=== PATIENT | female | born 1945 | race Caucasian/White ===

== ENCOUNTER 2019-04-28 14:35 | Inpatient (IN) ==
--- NOTE | 2019-04-28 15:00 | Emergency Department Note ---
Disposition Clinical Impression: NSTEMI (non-ST elevated myocardial infarction) Disposition: Admitted As Inpatient Condition: Fair Time of Disposition: 16:47 General Adult HPI - General Stated complaint: weakness Time Seen by Provider: 04/28/19 14:37 Source: patient, EMS Mode of arrival: EMS Limitations: no limitations Nursing Notes Reviewed: Yes Vital Signs Reviewed: Yes - History of Present Illness HPI Narrative: Patient is a 73-year-old female history of diabetes on dialysis who presents to the emergency department via EMS with fatigue, shortness of breath, chest pain. Patient was recently in admitted in an Hospital overnight in a different facility. Since her discharge she has been having fatigue, chest pain, shortness of breath and weakness. Here in the emergency department she is complaining of chest pain that she described it as weights on her chest without radiation. - Related Data Home Medications Medication Instructions Recorded Confirmed Acetaminophen [Tylenol 650mg SUPP] 650 mg RC Q4HR PRN 04/28/19 04/29/19 Levothyroxine Sodium 200 mcg PO DAILY 04/28/19 04/29/19 Lisinopril 2.5 mg PO DAILY 04/28/19 04/29/19 Ranitidine HCl [Acid Electric Meter Tester Shop] 150 mg PO DAILY 04/28/19 04/29/19 Sodium Bicarbonate 650 mg PO BID 04/28/19 04/29/19 Torsemide 100 mg PO DAILY 04/28/19 04/29/19 ALPRAZolam [Xanax 0.5 MG Tablet] 0.5 mg PO BID@0800,1700 04/29/19 04/29/19 ALPRAZolam [Xanax 0.5 MG Tablet] 0.5 mg PO HS PRN 04/29/19 04/29/19 Acetaminophen [Tylenol] 325 mg PO Q6HR PRN 04/29/19 04/29/19 Acetaminophen [Tylenol] 650 mg PO Q6HR PRN 04/29/19 04/29/19 Aquaphor [Aquaphor w Natural 1 appl TP AD 04/29/19 04/29/19 Healing] Aspirin 81 mg PO DAILY 04/29/19 04/29/19 Atorvastatin [Lipitor] 40 mg PO DAILY 04/29/19 04/29/19 Carvedilol [Coreg] 12.5 mg PO BID 04/29/19 04/29/19 Citalopram Hydrobromide 20 mg PO DAILY 04/29/19 04/29/19 [Citalopram HBr] Dimethicone/Zinc Oxide [Teo 142 gm TP AD PRN 04/29/19 04/29/19 Protect Cream] Ferrous Sulfate 325 mg PO BID 04/29/19 04/29/19 Folic Acid 1 mg PO DAILY 04/29/19 04/29/19 Glycerin/Propylene Glycol 1 drop BOTH EYES BID 04/29/19 04/29/19 [Artificial Tears Drops] GuaiFENesin/Dextromethorphan 10 ml PO Q4H PRN 04/29/19 04/29/19 [Robafen Dm Cgh-Chest Manuel Syrp] Hyoscyamine Sulfate [Oscimin Sl] 0.125 mg SL Q2H PRN 04/29/19 04/29/19 Ipratropium/Albuterol Sulfate 3 ml IH Q6HR PRN 04/29/19 04/29/19 [Iprat-Albut 0.5-3(2.5) mg/3 ml] Lactulose 10 gm PO BID 04/29/19 04/29/19 Levothyroxine [Synthroid] 50 mcg PO DAILY 04/29/19 04/29/19 Morphine Oral CONC [Roxanol] 5 mg SL Q4H PRN 04/29/19 04/29/19 OxyCODONE Immed Rel [Roxicodone 30 30 mg PO QID 04/29/19 04/29/19 MG] Potassium Chloride [K-Tab ER] 40 meq PO 1200 04/29/19 04/29/19 Promethazine [Phenergan] 25 mg PO Q6HR PRN 04/29/19 04/29/19 Promethazine [Phenergan] 25 mg RC Q6HR PRN 04/29/19 04/29/19 Daily-Marli 1 tab PO DAILY 04/29/19 04/29/19 Sevelamer HCl [Renagel] 1,600 mg PO TIDWM 04/29/19 04/29/19 Umeclidinium Brm/Vilanterol Tr 1 puff IH DAILY 04/29/19 04/29/19 [Anoro Ellipta 62.5-25 Mcg INH] Vitamin B Complex [B Complex] 1 tab PO DAILY 04/29/19 04/29/19 cloNIDine HCl [CloNIDine HCl] 0.1 mg PO Q8H PRN 04/29/19 04/29/19 Allergies Allergy/AdvReac Type Severity Reaction Status Date / Time No Known Allergies Allergy Verified 04/29/19 15:40 All systems ED: reviewed and negative except as stated. Review of Systems: As Per HPI Constitutional: Denies: fever, chills, weakness Eyes: Denies: eye pain, eye discharge, vision change ENT ED: Denies: ear pain, throat pain Cardiovascular: Reports: chest pain, dyspnea on exertion. Denies: palpitations, orthopnea, edema, syncope Respiratory: Denies: cough, dyspnea, hemoptysis Gastrointestinal: Denies: abdominal pain, nausea, vomiting, melena, hematochezia Genitourinary: Denies: urgency, dysuria Musculoskeletal: Denies: back pain, neck pain Neurological: Denies: headache Psychiatric: Denies: anxiety, depression Past Medical History - Past Medical History Attestation: Yes The following information was validated with the patient. Physical Exam - General Limitations: no limitations General appearance: alert, in no apparent distress - Head Head exam: atraumatic, normocephalic - Eye Eye exam: Present: PERRL, EOMI - ENT ENT exam: normal oropharynx, mucous membranes moist - Neck Neck exam: Present: full ROM - Chest Chest inspection: Present: symmetric chest wall rise. Absent: tenderness - Respiratory Respiratory exam: Present: normal lung sounds bilaterally. Absent: respiratory distress, wheezes - Cardiovascular Cardiovascular exam: Present: normal rhythm, normal heart sounds. Absent: bradycardia, tachycardia, irregular rhythm - Abdominal Exam Abdominal exam: Present: Non-Tender, other (Patient has extensive scarring with a colostomy bag in place, she has watery stools typical for her no signs of melena, or blood). Absent: tenderness, distention Course Course Narrative: Patient presented emergency department for shortness of breath and recent chest pain concerning for ACS. We will get a cardiac workup with likely admission. EKG was concerning special events fundraiser rule no STEMI. Patient's troponin came back at 0.04. Patient was started on aspirin and heparin. - Reevaluation(s) Reevaluation #1: Reevaluated the patient, daughter was at bedside. Spoke with her about her mother's condition and likely need for admission. She agrees. Patient was sleepy at bedside not complaining of any chest pain. Patient's colostomy bag will be accessed by nurse for fecal occult blood test. Time: 16:17 - Consultations Consultation #1: Patient had a concerning EKG Dr. Grey of cardiology was consulted who reviewed the EKG. No STEMI, recommended starting heparin and aspirin. Time: 15:25 Vital Signs Temperature 98.7 F 04/28/19 15:04 Pulse Rate 63 04/28/19 15:04 Respiratory Rate 22 04/28/19 15:04 Blood Pressure 166/80 04/28/19 15:04 O2 Sat by Pulse Oximetry 98 04/28/19 15:04 Temperature 98.6 F 04/30/19 06:54 Pulse Rate 57 04/30/19 06:54 Respiratory Rate 18 04/30/19 06:54 Blood Pressure 161/68 04/30/19 06:54 O2 Sat by Pulse Oximetry 96 04/30/19 06:54 Oxygen Delivery Oxygen Delivery Nasal Cannula Medical Decision Making - [facility] Narrative Medical decision making narrative: Patient presented via EMS with shortness of breath, chest pain, fatigue presented with concerns for ACS. EKG was abnormal special events fundraiser ruled not a 70. Troponin is elevated 0.04. Patient agrees with need for admission. - Medical Records Medical records reviewed: Yes I reviewed the patient's medical records. - Lab Data Lab results reviewed: Yes I reviewed the patient's lab results. Result diagrams: 04/30/19 06:20 04/30/19 08:09 Lab Results 04/28/19 04/28/19 04/28/19 Range/Units 15:15 15:15 15:15 WBC 8.0 (4.3-11.1) K/mcL RBC 3.57 L (3.82-4.97) M/mcL Hgb 10.5 L (11.5-15.4) g/dL Hct 34.0 L (35.3-44.9) % MCV 95.2 (83.0-100.0) fL MCH 29.4 (28.0-33.3) pg MCHC 30.9 L (31.6-35.5) g/dL RDW 14.7 H (11.5-14.5) % Plt Count 113 L (140-400) K/mcL MPV 11.6 (9.4-12.4) fL Immature Gran % 0.8 (0-4) % Seg Neutrophils % 68.0 % Lymphocytes % 19.7 % Monocytes % 11.3 % Eosinophils % 0.1 % Basophils % 0.1 % Neutrophils # 5.4 (1.6-8.9) K/mcL Lymphocytes # 1.6 (0.6-4.6) K/mcL Monocytes # 0.9 (0.0-1.3) K/mcL Eosinophils # 0.0 (0.0-0.6) K/mcL Basophils # 0.0 (0.0-0.2) K/mcL PT 12.2 H (9.4-12.1) Seconds INR 1.1 APTT 38.9 H (26.0-36.0) Seconds Heparin Anti-Xa, Unfract 0.00 L (0.30-0.70) IU/mL Sodium 137 (136-145) mEq/L Potassium 4.7 (3.5-5.1) mEq/L Chloride 98 (98-107) mEq/L Carbon Dioxide 24 (23-29) mEq/L BUN 65 H (8-23) mg/dL Creatinine 7.37 H (0.60-1.20) mg/dL Est GFR ( Amer) 7 L (> 60) Est GFR (Non-Af Amer) 5 L (> 60) BUN/Creatinine Ratio 9 (6-26) Glucose 127 H (70-105) mg/dL Calculated Osmolality 304 H (280-300) Calcium 8.9 (8.6-10.3) mg/dL Troponin I 0.04 H* (< 0.04) ng/mL Stool Occult Bld Scrn (Negative) 04/28/19 Range/Units 16:20 WBC (4.3-11.1) K/mcL RBC (3.82-4.97) M/mcL Hgb (11.5-15.4) g/dL Hct (35.3-44.9) % MCV (83.0-100.0) fL MCH (28.0-33.3) pg MCHC (31.6-35.5) g/dL RDW (11.5-14.5) % Plt Count (140-400) K/mcL MPV (9.4-12.4) fL Immature Gran % (0-4) % Seg Neutrophils % % Lymphocytes % % Monocytes % % Eosinophils % % Basophils % % Neutrophils # (1.6-8.9) K/mcL Lymphocytes # (0.6-4.6) K/mcL Monocytes # (0.0-1.3) K/mcL Eosinophils # (0.0-0.6) K/mcL Basophils # (0.0-0.2) K/mcL PT (9.4-12.1) Seconds INR APTT (26.0-36.0) Seconds Heparin Anti-Xa, Unfract (0.30-0.70) IU/mL Sodium (136-145) mEq/L Potassium (3.5-5.1) mEq/L Chloride (98-107) mEq/L Carbon Dioxide (23-29) mEq/L BUN (8-23) mg/dL Creatinine (0.60-1.20) mg/dL Est GFR ( Amer) (> 60) Est GFR (Non-Af Amer) (> 60) BUN/Creatinine Ratio (6-26) Glucose (70-105) mg/dL Calculated Osmolality (280-300) Calcium (8.6-10.3) mg/dL Troponin I (< 0.04) ng/mL Stool Occult Bld Scrn Positive A (Negative) - Radiology Data Radiology results reviewed: Yes I reviewed the patient's radiology results. Chest X-Ray 04/28/19 15:01 IMPRESSION: Findings concerning for developing right upper lobe pneumonia. Small right pleural effusion, new. D/ / Danika Nguyen MD / Danika Nguyen MD Interpreting Provider: Dankia Nguyen MD - EKG Data EKG #1 EKG attestation: Yes I reviewed and interpreted this EKG. EKG results narrative: EKG performed at 1456 reviewed by myself and the attending with consultation of an interventricular special events fundraiser Dr. Grey. EKG shows a sinus rhythm at a rate of 63 OH 128 QRS 79 QTC 447 normal axis. There are very minimal ST depressions in the inferior lateral leads. With very mild ST elevations in V1, V2, aVR. Cardiology ruled this as not a STEMI. T wave inversions in V1 and V2. These are acute changes when compared with EKG performed 10/04/2012. Overall this is an abnormal EKG. Critical Care Time Critical Care Time: Yes Total Critical Care Time: 45 Attestation: The high probability of a clinically significant, sudden or life threatening deterioration of the cardiovascular system(s) required my full and direct attention, intervention and personal management. The aggregate critical care time was 45 minutes. This time is in addition to time spent performing reported procedures but includes the following: x Data Review and interpretation x Patient assessment and monitoring of vital signs x Documentation x Medication orders and management Attestation Statement - Attestation Attestation: I, Geremias Huggins, examined this patient and my medical decision-making was reviewed with the EGG PRODUCER/PA/Advanced Practice Nurse/Resident Physician. I agree with the documented findings, disposition and treatment plan as described except to the extent set forth below. 73-year-old female presents emergency Department with concerns of weakness, chest pain. EMS stated they found her diaphoretic and confused upon arrival. Patient states that she does not have chest pain emergency department this time however she had pain prior to arrival. She described as a pressure inside of her chest. EKG showed ST depressions in the inferior and lateral leads. We contacted the interventional list immediately after initial evaluation who evaluated the EKG and recommended that it was not a STEMI. He recommended aspirin and heparin and further evaluation. Patient was started on these medications in the emergency department. She did not have any focal neurologic deficits during our initial exam. Daughter arrived to the emergency department after the initial evaluation and then stated that she had deviation of the right eye but did not report any other focal neurologic deficits. CT of the head does not show evidence of acute intracranial hemorrhage or obvious CVA. It unclear as to when the eye deviation started or when it improved. This could be secondary to CVA which will need further evaluation. Initial troponin was mildly elevated.I reviewed the EKG with the resident and agree with the interpretation. Patient will be admitted to the hospitalist for further care and evaluation.
[2019-04-28 15:34] LABS: Basophils % 0.1 %; Eosinophils % 0.1 %; Hemoglobin 10.5 g/dL (11.5-15.4); Immature Granulocytes % 0.8 % (0-4); Lymphocytes # 1.6 K/mcL (0.6-4.6); Lymphocytes % 19.7 %; Mean Corpuscular HGB Conc 30.9 g/dL (31.6-35.5); Mean Corpuscular Hemoglobin 29.4 pg (28.0-33.3); Mean Corpuscular Volume 95.2 fL (83.0-100.0); Mean Platelet Volume 11.6 fL (9.4-12.4); Monocytes # 0.9 K/mcL (0.0-1.3); Monocytes % 11.3 %; Neutrophils # 5.4 K/mcL (1.6-8.9); Platelet Count 113 K/mcL (140-400); Red Blood Count 3.57 M/mcL (3.82-4.97); Red Cell Distribution Width 14.7 % (11.5-14.5)
[2019-04-28] MEDS ORDERED: *HR* Heparin 5,000 UNIT/ML VIAL IVP ONE (15:35)
[2019-04-28] MEDS ORDERED: *HR* Heparin 5,000 UNIT/ML VIAL IVP PRN ×3 (15:35→18:51)
[2019-04-28] MEDS ORDERED: Aspirin 81 MG TAB.CHEW PO STA (15:37)
[2019-04-28] MEDS ORDERED: *HR* Dextrose 50 % in Water (Syg) 50 ML SYRINGE IVP ONE (15:40)
[2019-04-28] MEDS ORDERED: Heparin 25,000 UNIT/250 ML D5W 25,000 UNIT/250 ML IV.SOLN IVC SCH (15:45)
[2019-04-28 15:55] LABS: Calcium 8.9 mg/dL (8.6-10.3); INR 1.1; Potassium 4.7 mEq/L (3.5-5.1); Prothrombin Time 12.2 Seconds (9.4-12.1)
[2019-04-28 15:57] LABS: Activated Partial Thrombo Time 38.9 Seconds (26.0-36.0)
[2019-04-28 16:04] LABS: Troponin I 0.04 ng/mL (< 0.04)
--- NOTE | 2019-04-28 17:26 | Internal Med History&Physical ---
Date of Encounter: 04/28/19 Time of Encounter: 17:40 Internal Medicine - H&P: HPI Chief complaint: lethargy per SNF, chest pain as per EMS Admitted From: Long-term Nursing Facility Plans for Post Hospital Care: [facility] History of present illness: 73 yo SNF resident with extensive pmhx below presented via EMS from SNF EMS privded ED with far different CC than pt daughter (whom had VM she received from SNF) did at bedside. Per EMS pt c/o chest pain, had diaphroesis and sob concerning for ACS sxs and ED worked this up with ekg that was abnormal and discussed with Dr Grey whom ruled out STEMI but did feel hep gtt and asa were warranted and recommended admit, trop 0.04. Pt daughter notes her mother was sent to [place] on 04/26 for lethargy. baseline mentation is AAOx3, awake, alert and interactive. She had been somnolent and not eating/drinking. Pt daughter notes she had pupils that were unequal "and fixed " and they admitted her to the hospital. She reports CT head was normal, labs were largely unremarkable to best of her knowledge, and they told her they thought she was oversedated on her home meds, possibly related to her ESRD status. She discharged to snf yesterday. Pt daughter played VM from [facility] today which noted they were sending pt t ED for elevated BP, lethargy, not eating for over a day and concern her "right eye is offset". We discussed how her paperwork says she was with [facility] hospice and DNR CC and how pt reversed that decision in conversation with daughter last week. As pt became more alert and conversational throughout exam she noted her wish to be a full code. Pt initially somnolent with inability to stay awake for conversation. ED improvement intern notified of new information and hep gtt stopped and stat ct head ordered. Pt gradually became more alert and was able to converse to provide additional history. She recalls having cp in ambulance, substernal, with pressure, sob and diaphoresis, non radiating. She has had cough with yellow sputum and sob in last 4-5 days that is new. no wheezing, orpthopnea, pnd or le edema. In regards to occult stool + and anemia, she is unsure of bl hgb in setting of esrd but does note her stoma bleeds at times and had bled recently. She denies melena or hematochezia, no abd pain, n/v. She is denying cardenas, vision changes, speech chnages or difficulty swallowing in recent days. No weakness, numbness/tingling of ext or face. Has ESRD on HD MWF in [place] at [place]?. Past Med Surg Social Fam HX - Past Medical History Medical history: CHF, COPD, dementia, hyperlipidemia, hypertension, myocardial infarction, renal disease, thyroid disease, other (colostomy) Additional medical history: anemia. UTI. low back pain. bowel obstruction Psychiatric history: anxiety, depression - Past Surgical History Additional surgical history: ex lap with colostomy - Social History Smoking Status: Former smoker Alcohol use: unknown Drug use: unknown Current living situation: ECF - Additional Family History Additional family history: unable to obtain as pt daughter did not know history and pt was somnolent and unable to provide Internal Medicine - H&P: Meds Allergy/AdvReac Type Severity Reaction Status Date / Time No Known Allergies Allergy Verified 04/28/19 16:07 All Systems PM: A 10-system review of systems was performed and is negative for pertinent findings except as documented above in the HPI. - Constitutional Vitals: Temp Pulse Resp BP Pulse Ox 98.7 F 63 22 166/80 99 04/28/19 15:04 04/28/19 15:04 04/28/19 15:04 04/28/19 15:04 04/28/19 15:16 Exam: General: initially somnolent, then awake, alert, appears stated age HEENT:EOM intact, pupils equal, round, moist mucus membranes Neck: supple, trachea midline Cardiovascular:regular rate and rhythm, normal S1 & S2, no rubs, murmurs or gallops. No JVD. radial pulses 2+, no lower extremity edema Lungs:Normal breath sounds, no wheezes, or crackles. Normal respiratory effort Abdomen:Soft, non-tender, non-distended, no rigidity, + bowel sounds, ostomy with clear yellow output that she notes is her baseline Extremities:No deformity, no edema or tenderness, no joint swelling or clubbing. Neurological: AAOx3, CN grossly intact, no pronator drift, strength 5/5 throughout, sensation to lt touch throughout normal and equal, finger to nose testing normal Skin:Normal color, no rash, no pallor, no jaundice Internal Med - H&P Results - Labs CBC & Chem 7: 04/28/19 15:15 04/28/19 15:15 Labs: Short CBC 04/28/19 Range/Units 15:15 WBC 8.0 (4.3-11.1) K/mcL Hgb 10.5 L (11.5-15.4) g/dL Hct 34.0 L (35.3-44.9) % Plt Count 113 L (140-400) K/mcL Neutrophils # 5.4 (1.6-8.9) K/mcL BMP 04/28/19 15:15 Sodium 137 Potassium 4.7 Chloride 98 Carbon Dioxide 24 BUN 65 H Creatinine 7.37 H Glucose 127 H Calcium 8.9 Cardiac Enzymes 04/28/19 Range/Units 15:15 Troponin I 0.04 H* (< 0.04) ng/mL - Impressions ITS Impressions Chest X-Ray 04/28/19 15:01 IMPRESSION: Findings concerning for developing right upper lobe pneumonia. Small right pleural effusion, new. D/ / Danika Nguyen MD / Danika Nguyen MD Interpreting Provider: Danika Nguyen MD - Assessment and Plan (1) NSTEMI (non-ST elevated myocardial infarction) Current Visit: Yes Status: Acute (2) Somnolence Current Visit: Yes Status: Acute (3) ESRD (end stage renal disease) on dialysis Current Visit: Yes Status: Chronic (4) PNA (pneumonia) Current Visit: Yes Status: Acute Qualifiers: Pneumonia type: due to unspecified organism Qualified Code(s): J18.9 - Pneumonia, unspecified organism (5) Anemia Current Visit: Yes Status: Acute Qualifiers: Anemia type: unspecified type Qualified Code(s): D64.9 - Anemia, unspecified (6) Thrombocytopenia Current Visit: Yes Status: Acute (7) HTN (hypertension) Current Visit: Yes Status: Chronic Qualifiers: Hypertension type: essential hypertension Qualified Code(s): I10 - Essential (primary) hypertension - Summary of Assessment and Plan Summary of Assessment and Plan: NSTEMI -cards aware of pt, hep gtt started, asa + statin + BB +acei -trend trops, am ekg, check echo, lipids, a1c, tsh in am -npo in am in case needs stress or lhc Pna, RUL, on CXR, org unknown -rocephin + azithro -attempt to ID organism -prn nebs, o2 prn ESRD on HD MWF- nephro consulted Anemia, hgb 10.5, unknown bl, suspect this is anemia of chronci disease while occult stool + in ED pt noted her stoma bleeds at time but she has no black stools or hematochezia, regardless will treat as if possible GIB, though given her report will cont with hep gtt as above and close monitoring given risk v benefit Thrombocytopenia plts 110s, unclear if chronic or acute -serial hgbs with trops tonight, monitor for bleeding, IV PPI BID and gi consult as if she requires cath or say possible stenting would be improtant to know if has GIB and if this would present DAPT treatment Somnolence, intermittent, becaem awake and AAOx3 in room Differential includes infectious process (pna) , oversedation with extensive home pain meds, psych meds and low dose benzo, or ACS Less likely neurologic in nature, normal neuro exam CT head unremarkable -cont neuro checks, hold sedating meds tonight Hypothyroidism- cont hoem synthroid will awake full home med rec and only essential meds ordered for tonight
[2019-04-28] MEDS ORDERED: Naloxone 0.4 MG/ML INJ IVP PRN (18:17)
[2019-04-28] MEDS ORDERED: Nitroglycerin 0.4 MG TAB.SUBL SL PRN (18:17)
[2019-04-28] MEDS ORDERED: Azithromycin 500 MG in D5% in Water 250 ML IVPB SCH (19:00)
[2019-04-28] MEDS ORDERED: Ipratropium/Albuterol Neb 3 ML IH PRN (19:04)
[2019-04-28] MEDS ORDERED: Acetaminophen 325 MG TABLET PO PRN (19:18)
[2019-04-28] MEDS: Heparin 25,000 UNIT/250 ML D5W 25,000 UNIT/250 ML IV.SOLN IVC SCH (20:40)
[2019-04-28] MEDS: Pantoprazole 40 MG VIAL IVP SCH (21:11)
[2019-04-28 21:45] LABS: Hematocrit 34.6 % (35.3-44.9); Hemoglobin 10.7 g/dL (11.5-15.4); Mean Corpuscular HGB Conc 30.9 g/dL (31.6-35.5); Mean Corpuscular Hemoglobin 29.9 pg (28.0-33.3); Mean Corpuscular Volume 96.6 fL (83.0-100.0); Mean Platelet Volume 10.9 fL (9.4-12.4); Platelet Count 107 K/mcL (140-400); Red Blood Count 3.58 M/mcL (3.82-4.97); Red Cell Distribution Width 14.6 % (11.5-14.5); White Blood Count 7.1 K/mcL (4.3-11.1)
[2019-04-28 21:58] LABS: Heparin anti-factor XA UFH 0.07 IU/mL (0.30-0.70); INR 1.1; Prothrombin Time 12.4 Seconds (9.4-12.1)
[2019-04-29 02:44] LABS: Hematocrit 35.3 % (35.3-44.9); Hemoglobin 10.7 g/dL (11.5-15.4); Immature Granulocytes % 0.9 % (0-4); Lymphocytes # 1.9 K/mcL (0.6-4.6); Lymphocytes % 28.9 %; Mean Corpuscular HGB Conc 30.3 g/dL (31.6-35.5); Mean Corpuscular Hemoglobin 29.1 pg (28.0-33.3); Mean Corpuscular Volume 95.9 fL (83.0-100.0); Mean Platelet Volume 11.1 fL (9.4-12.4); Monocytes # 0.6 K/mcL (0.0-1.3); Monocytes % 9.8 %; Platelet Count 103 K/mcL (140-400); Red Blood Count 3.68 M/mcL (3.82-4.97); Red Cell Distribution Width 14.6 % (11.5-14.5); Segmented Neutrophils % 60.4 %; White Blood Count 6.5 K/mcL (4.3-11.1)
[2019-04-29 03:04] LABS: Calcium 9.3 mg/dL (8.6-10.3); Magnesium 2.4 mg/dL (1.6-2.6); Potassium 4.3 mEq/L (3.5-5.1)
[2019-04-29 03:06] LABS: Chol/HDL Ratio 2.1 (0-4.9); Cholesterol 75 mg/dL (< 200); HDL Cholesterol 35 mg/dL (40-59); LDL Cholesterol,Calculated 24 mg/dL (0-99); Triglycerides 82 mg/dL (< 150)
[2019-04-29 03:39] LABS: Thyroid Stimulating Hormone < 0.010 mcIU/mL (0.340-5.600)
[2019-04-29] MEDS: Pantoprazole 40 MG VIAL IVP SCH ×2 (05:06→17:10)
[2019-04-29 08:01] LABS: Estimated Average Glucose 134 mg/dl
--- NOTE | 2019-04-29 08:07 | Internal Med Progress Note ---
<Madelyn Beltran Danny - Last Filed: 04/29/19 17:11> Hospitalist Progress Note - Encounter Date of Encounter: 04/29/19 Time of Encounter: 09:30 - Subjective Interval History: Patient is a 73-year-old female with history of diabetes on dialysis, CHF, COPD who presented to the emergency department via EMS with fatigue, shortness of b reath, chest pain. Per EMS pt c/o chest pain, had diaphoresis and sob. Concerns for ACS sxs and ED worked this up with ekg that was abnormal STEMI was ruled out although heparin and asa were warranted and recommended admit, with trop 0.04. In ED chest x-ray was completed showed right upper lobe pneumonia with small right pleural effusion. Patient this morning slightly groggy upon awakening but was able to give information about her symptoms. Patient denies any chest pain, denies any abdominal pain, admits to mild shortness of breath. - Exam Vitals: Temp Pulse Resp BP Pulse Ox 97.5 F L 58 16 145/60 97 04/29/19 05:18 04/29/19 05:18 04/29/19 05:18 04/29/19 05:18 04/29/19 05:18 Exam: General: initially groggy, then awake, alert, appears stated age Neck: supple, trachea midline, without thyromegaly. Cardiovascular: regular rate and rhythm, normal S1 & S2, no rubs, murmurs or gallops. No JVD. radial pulses 2+, no lower extremity edema Lungs:Normal breath sounds, no wheezes, or crackles. Normal respiratory effort Abdomen:Soft, non-tender, non-distended, no rigidity, bowel soundsx4 , ostomy in LLQ with brown output with a fecal odor. previous surgical scar midline. Extremities:No deformity, no edema or tenderness, no joint swelling or clubbing. Skin:Normal color, no rash, no pallor, no jaundice neuro: no focal deficits, cooperative with exam. - Assessment and Plan (1) NSTEMI (non-ST elevated myocardial infarction) Current Visit: Yes Status: Acute Assessment and Plan: Patient has been made nothing by mouth. Per cardiology consult: patient was given option of conservative management vs LHC. pt would like to wait for echo to evaluate cardiac function prior to obtaining a heart catheter. Echo be completed tomorrow. (2) Somnolence Current Visit: Yes Status: Acute Assessment and Plan: We will hold sedating medications at the moment to decrease episodes of somno lence. Obtained urine culture: negative for strep and legionella antigens. Reevaluate neurological status Q4H on vital sign check. (3) ESRD (end stage renal disease) on dialysis Current Visit: Yes Status: Chronic Assessment and Plan: Patient was unable to complete dialysis today due to anxious symptoms. Per nephro recommendations: Renal diet. Renal vitamins Strict I's and O's Avoid nephrotoxins and renally dose all medications. (4) PNA (pneumonia) Current Visit: Yes Status: Acute Assessment and Plan: Sputum culture obtained. Continue azithromycin Continue Rocephin (5) Anemia Current Visit: Yes Status: Acute Assessment and Plan: GI consult. per GI recommendations: GI will obtain EGD and colonoscopy tomorrow on clear liquid diet and bowel prep. - Summary of Assessment and Plan Summary of Assessment and Plan: NSTEMI -cardiology consulted on pt: -Check CBC, BMP in am -npo for echo in am. PNA: -continue rocephin + azithro -attempt to ID organism: sputum culture pending. -prn nebs, o2 prn ESRD: - on HD MWF - nephro consulted; - renal diet - renal vitamins - strict I/o - Avoid nephrotoxins and renal dose medications. ANEMIA: - hgb 10.5, unknown bl, suspect this is anemia of chronic disease - while occult stool + in ED, GI consulted: - EGD and Colonoscopy tomorrow - prep with Nulytly or miralax - Clear liquid diet. Thrombocytopenia: plts downtrending unclear if chronic or acute -Will obtain CBC in am. - GI will follow. Somnolence: - intermittent, becomes awake and AAOx3 in room - Differential includes infectious process (pna) , oversedation with extensive home pain meds, psych meds and low dose benzo, or ACS. - CT head unremarkable -cont neuro checks Q4H with vitals, hold sedating meds tonight Hypothyroidism: - TSH low and T4 elevated on home synthroid regimen - cont tele - hold synthroid, she will require dose reduction and close pcp fu outpt - Time Spent with Patient Total time spent is greater than 50% in coordination of care (as documented) at patient's floor/unit and/or counseling patient: Internal Medicine: Result - Labs CBC & Chem 7: 04/29/19 02:33 04/29/19 02:33 Labs: Short CBC 04/28/19 04/28/19 04/29/19 Range/Units 15:15 21:06 02:33 WBC 8.0 7.1 6.5 (4.3-11.1) K/mcL Hgb 10.5 L 10.7 L 10.7 L (11.5-15.4) g/dL Hct 34.0 L 34.6 L 35.3 (35.3-44.9) % Plt Count 113 L 107 L 103 L (140-400) K/mcL Neutrophils # 5.4 4.0 (1.6-8.9) K/mcL BMP 04/28/19 04/29/19 15:15 02:33 Sodium 137 136 Potassium 4.7 4.3 Chloride 98 98 Carbon Dioxide 24 25 BUN 65 H 70 H Creatinine 7.37 H 8.01 H Glucose 127 H 78 Calcium 8.9 9.3 Cardiac Enzymes 04/28/19 04/28/19 04/29/19 Range/Units 15:15 21:06 02:33 Troponin I 0.04 H* 0.04 H* 0.04 H* (< 0.04) ng/mL - ABG Interpretation ABG results: PT/INR, D-dimer PT 12.4 Seconds (9.4-12.1) H 04/28/19 21:06 - Impressions Impressions Chest X-Ray 04/28/19 15:01 IMPRESSION: Findings concerning for developing right upper lobe pneumonia. Small right pleural effusion, new. D/ / Danika Nguyen MD / Danika Nguyen MD Interpreting Provider: Danika Nguyen MD Head CT 04/28/19 17:58 IMPRESSION: No acute intracranial abnormality. Slight cerebral atrophy appropriate for age. Mild chronic ischemic changes also age-appropriate. D/ / Tristen Swift MD / Tristen Swift MD Interpreting Provider: Tristen Swift MD Consult Discharge Plan - Plan Referrals: Trent Bose MD [Primary Care Provider] - <Katie Moreau - Last Filed: 04/30/19 07:52> Hospitalist Progress Note - Encounter Date of Encounter: 04/30/19 - Exam Vitals: Temp Pulse Resp BP Pulse Ox 98.6 F 57 18 161/68 96 04/30/19 06:54 04/30/19 06:54 04/30/19 06:54 04/30/19 06:54 04/30/19 06:54 - Assessment and Plan (1) NSTEMI (non-ST elevated myocardial infarction) Current Visit: Yes Status: Acute (2) Somnolence Current Visit: Yes Status: Acute (3) ESRD (end stage renal disease) on dialysis Current Visit: Yes Status: Chronic (4) PNA (pneumonia) Current Visit: Yes Status: Acute (5) Anemia Current Visit: Yes Status: Acute (6) Thrombocytopenia Current Visit: Yes Status: Chronic (7) HTN (hypertension) Current Visit: Yes Status: Chronic - Time Spent with Patient Total time spent is greater than 50% in coordination of care (as documented) at patient's floor/unit and/or counseling patient: Internal Medicine: Result - Labs CBC & Chem 7: 04/30/19 06:20 04/29/19 02:33 Labs: Short CBC 04/30/19 Range/Units 06:20 WBC 7.9 (4.3-11.1) K/mcL Hgb 11.8 (11.5-15.4) g/dL Hct 36.8 (35.3-44.9) % Plt Count 133 L (140-400) K/mcL Neutrophils # 5.2 (1.6-8.9) K/mcL BMP 04/29/19 02:33 Sodium 136 Potassium 4.3 Chloride 98 Carbon Dioxide 25 BUN 70 H Creatinine 8.01 H Glucose 78 Calcium 9.3 Urine 04/29/19 Range/Units 14:15 Urine Color Yellow (Yellow) Urine Clarity Clear (Clear) Urine pH 7.5 (5.0-8.0) pH Units Ur Specific [place] 1.010 (1.010-1.025) Urine Protein 100 H (Neg-Trace) mg/dL Urine Glucose (UA) Normal (Normal) mg/dL - ABG Interpretation ABG results: PT/INR, D-dimer PT 12.4 Seconds (9.4-12.1) H 04/28/19 21:06 - Attending Attestation I examined this patient and my medical decision-making was reviewed with the Resident Physician Dr Beltran. I agree with the documented findings, disposition and treatment plan as described except to the extent set forth below. Ms Jeffers is being observed for NSTEMI and pna asleep, awakes to name, no family present. answers all questions appropriately. denies cp, pressure, + sob but none at rest on o2 nc, + cough and denies wheezing. gen- alert, awake,appears stated age eyes- pupils equal round cv- reg rate and rhythm, normal s1,s2, no le edema or jvd lungs- ctabl, no wheezing, rhonchi or crackles, normal resp effort on o2 nc abd- soft, non tender, ostomy with ruiz/yellow output neuro- AAOx3, CN grossly intact NSTEMI- apprecate cards input, cont hep gtt, echo pending and then pt to decide LHC vs conservative med management, asa + statin + BB Pna, RUL, org unknown- cont IV abx, attempt ot ID organism acute hypoxic resp failure 2/2 pna + nstemi- cont o2 nc at this time regardless of ability to wean given NSTEMI ESRD- HD as per nephro Somnolence, resolved- she is a hard sleeper but is AAOx3 Hypothyroidism but TSH low and T4 elevated on key esynthroid regimen- unsure if this could have contributed to cardiac sxs- at this time cont tele, hold synthroid, she will require dose reduction and close pcp fu outpt Pre DM- A1C 6.3%, outpt fu Anemia and occult stool +- appreciate gi input, egd/cscope in am <Madelyn Beltran L - Last Filed: 04/29/19 17:11> (4) PNA (pneumonia) Qualifiers: Pneumonia type: due to unspecified organism Laterality: unspecified later ality Lung location: unspecified part of lung Qualified Code(s): J18.9 - Pneumonia, unspecified organism (5) Anemia Qualifiers: Anemia type: unspecified type Qualified Code(s): D64.9 - Anemia, unspecified <Katie Moreau - Last Filed: 04/30/19 07:52> (4) PNA (pneumonia) Qualifiers: Pneumonia type: due to unspecified organism Laterality: unspecified laterality Lung location: unspecified part of lung Qualified Code(s): J18.9 - Pneumonia, unspecified organism (5) Anemia Qualifiers: Anemia type: unspecified type Qualified Code(s): D64.9 - Anemia, unspecified (7) HTN (hypertension) Qualifiers: Hypertension type: essential hypertension Qualified Code(s): I10 - Essential (primary) hypertension
[2019-04-29 09:01] LABS: Triiodothyronine (T3) Free 2.61 pg/mL (2.50-3.90)
[2019-04-29] MEDS ORDERED: 0.9 % Sodium Chloride 250 ML IVC PRN (09:12)
[2019-04-29] MEDS ORDERED: *HR* Heparin 10,000 UNIT/10 ML VIAL IV PRN ×2 (09:12)
[2019-04-29] MEDS ORDERED: 0.9 % Sodium Chloride 1,000 ML PRIME SCH (09:15)
[2019-04-29 09:24] LABS: Hepatitis B Surface Antibody 7.97 mIU/mL
[2019-04-29] MEDS: cefTRIAXone 1,000 MG in Water for inj. (sterile) 10 ML IVP SCH (09:29)
[2019-04-29] MEDS: Aspirin Enteric Coated 81 MG Tablet PO SCH (09:29)
[2019-04-29] MEDS: Azithromycin 250 MG TABLET PO SCH (09:29)
[2019-04-29] MEDS: *HR* Heparin 5,000 UNIT/ML VIAL IVP PRN ×2 (09:30→23:09)
[2019-04-29 09:35] LABS: Hepatitis B Surface Antigen Nonreactive (Nonreactive)
--- NOTE | 2019-04-29 10:57 | Cardiology Consult Note ---
<Lori Gomes - Last Filed: 04/29/19 11:55> Date of Encounter: 04/29/19 - Attending Attestation I examined this patient and my medical decision-making was reviewed with the Resident Physician. I agree with the documented findings, disposition and treatment plan as described. Ms. Jeffers presented with difficulty breathing and chest discomfort. Troponin flat, adynamic 0.04 x 3. Inferior ECG changes are new when compared to ECG from 2013. Patient has been chest pain free since admission. Gave patient options of conservative management vs. consideration for LHC. Patient would like to wait for Echo results before making further decisions. For now, continue heparin, asa, statin, BB. Assessment and Plan Discussion w patient/family: The assessment and plan as outlined above was discussed with the patient and/or family members who expressed understanding and agreement. All questions were answered. Thank you for involving us in the care of your patient. Please call with any questions. History of Present Illness History of present illness: Ms. Jeffers is a 73 year old female Medications and Allergies Acetaminophen [Tylenol 650mg SUPP] 650 mg RC Q4HR PRN 04/28/19 [History] Levothyroxine Sodium 200 mcg PO DAILY 04/28/19 [History] Lisinopril 2.5 mg PO DAILY 04/28/19 [History] Ranitidine HCl [Acid [employer]] 150 mg PO DAILY 04/28/19 [History] RisperiDONE [Risperdal] 0.25 mg PO HS 04/28/19 [History] Sevelamer [Renvela] 800 mg PO WMHS 04/28/19 [History] Sodium Bicarbonate 650 mg PO BID 04/28/19 [History] Torsemide 100 mg PO DAILY 04/28/19 [History] ALPRAZolam [Xanax 0.5 MG Tablet] 0.5 mg PO BID 04/29/19 [History] ALPRAZolam [Xanax 0.5 MG Tablet] 0.5 mg PO HS PRN 04/29/19 [History] Acetaminophen [Tylenol] 325 mg PO Q6HR PRN 04/29/19 [History] Aquaphor [Aquaphor w Natural Healing] 50 gm TP PRN PRN 04/29/19 [History] Artificial Tears SOLN [Akwa Tears] 1 drop BOTH EYES BID 04/29/19 [History] Aspirin 81 mg PO DAILY 04/29/19 [History] Atorvastatin Calcium [Lipitor] 40 mg PO DAILY 04/29/19 [History] Carvedilol [Coreg] 6.25 mg PO BIDWM 04/29/19 [History] Citalopram Hydrobromide [Citalopram HBr] 20 mg PO DAILY 04/29/19 [History] Dimethicone/Zinc Oxide [Teo Protect Cream] 142 gm TP PRN PRN 04/29/19 [History] Ferrous Sulfate [Iron] 325 mg PO BID 04/29/19 [History] Folic Acid 1 mg PO DAILY 04/29/19 [History] GuaiFENesin Liq [Robitussin Liq] 200 mg PO Q4HR PRN 04/29/19 [History] Hyoscyamine Sulfate [Oscimin Sl] 0.125 mg SL Q2HR PRN 04/29/19 [History] Ipratropium/Albuterol Sulfate [Iprat-Albut 0.5-3(2.5) mg/3 ml] 3 ml Q6HR 04/29/19 [History] Lactulose 10 gm PO BID 04/29/19 [History] Levothyroxine [Synthroid] 50 mcg PO DAILY 04/29/19 [History] Morphine Oral CONC [Roxanol] 0.25 ml PO Q4H PRN 04/29/19 [History] OxyCODONE Immed Rel [Roxicodone 30 MG] 30 mg PO Q6H PRN 04/29/19 [History] Promethazine [Phenergan] 25 mg PO Q6HR PRN 04/29/19 [History] Promethazine [Phenergan] 25 mg RC Q6HR PRN 04/29/19 [History] Umeclidinium Brm/Vilanterol Tr [Anoro Ellipta 62.5-25 Mcg INH] 1 each IH DAILY 04/29/19 [History] Vitamin B Complex [B Complex] 1 each PO DAILY 04/29/19 [History] cloNIDine HCl [CloNIDine HCl] 0.1 mg PO TID PRN 04/29/19 [History] Allergy/AdvReac Type Severity Reaction Status Date / Time No Known Allergies Allergy Verified 04/28/19 16:07 All Systems Review: The remainder of the systems were reviewed and are negative Physical Examination Vital Signs, Last 4 Hours Temp Pulse Resp BP Pulse Ox 04/29/19 08:10 98.5 F 68 20 162/74 92 Results 04/29/19 02:33 04/29/19 02:33 Lab Results 04/28/19 04/28/19 04/28/19 15:15 15:15 15:15 WBC 8.0 Hgb 10.5 L Hct 34.0 L Plt Count 113 L INR 1.1 APTT 38.9 H Sodium 137 Potassium 4.7 Chloride 98 Carbon Dioxide 24 BUN 65 H Creatinine 7.37 H Glucose 127 H Calcium 8.9 Magnesium Troponin I 0.04 H* TSH 04/28/19 04/28/19 04/28/19 21:06 21:06 21:06 WBC 7.1 Hgb 10.7 L Hct 34.6 L Plt Count 107 L INR 1.1 APTT Sodium Potassium Chloride Carbon Dioxide BUN Creatinine Glucose Calcium Magnesium Troponin I 0.04 H* TSH 04/29/19 04/29/19 04/29/19 02:33 02:33 02:33 WBC 6.5 Hgb 10.7 L Hct 35.3 Plt Count 103 L INR APTT Sodium Potassium Chloride Carbon Dioxide BUN Creatinine Glucose Calcium Magnesium Troponin I 0.04 H* TSH < 0.010 L 04/29/19 02:33 WBC Hgb Hct Plt Count INR APTT Sodium 136 Potassium 4.3 Chloride 98 Carbon Dioxide 25 BUN 70 H Creatinine 8.01 H Glucose 78 Calcium 9.3 Magnesium 2.4 Troponin I TSH Consult Discharge Plan - Plan Referrals: Trent Bose MD [Primary Care Provider] - <Helen Mayberry - Last Filed: 04/29/19 12:06> Date of Encounter: 04/29/19 Time of Encounter: 10:25 Assessment and Plan (1) NSTEMI (non-ST elevated myocardial infarction) Current Visit: Yes Status: Acute Echocardiogram ordered to evaluate cardiac function Given EKG changes as compared to 2013 EKG, mildly elevated troponin (0.04) and history of CP w/ diaphoresis and SOB worse with exertion, will offer patient option of catheterization (2) Thrombocytopenia Current Visit: Yes Status: Chronic Patient's platelets decreased from 107K at admission to 103K. Although she is now receiving heparin, this is not a significant enough drop yet to indicate HIT. 4T score <3 indicates low probability of HIT at this time. - Continue to monitor CBC - Continue heparin Discussion w patient/family: The assessment and plan as outlined above was discussed with the patient. Ms. Jeffers requested to have the echo results back first before deciding whether to undergo catheterization. All questions were answered. Thank you for involving us in the care of your patient. Please call with any questions. History of Present Illness Consult date: 04/29/19 History of present illness: Ms. Jeffers is a 73 year old female who was brought to the ED from [facility] by EMS on 04/28/19 for evaluation of CP described as a non-radiating "weight on her chest" with diaphoresis and SOB. Patient said she has been having CP for "a while" and that she feels it is recently worse than usual w/ exertion. She has also had a cough for 4-5 days w/ sputum. SNF wanted her evaluated in ED due to HTN, lethargy and loss of appetite. She was seen at [place] on 04/26 for lethargy and discharged w/o acute findings. EKG showed LVH with possible non-specific inferior lead changes, troponin 0.04 times three, CXR showed RUL PNA. CT head neg. Positive FOBT with sample from co lostomy - patient stated stoma sometimes bleeds. INR 1.1. Patient denies current CP or SOB. VS stable , O2 92-97% 3L NC. PMH significant for ESRD w/ dialysis, RI s/p catheterization, although Ms. Jeffers could not recall exactly when; COPD, HLD, anemia of chronic disease, hypothyroid, bowel obstruction, UTI, ex-lap s/p colostomy. Last dialysis on Monday04/26/19. She goes MWF each week. Social history significant for past smoker. She is being given heparin, aspirin, lisinopril, atorvastatin and carvedilol during this admission, along with ceftriaxone for PNA. Past Med Surg Social Fam HX - Past Medical History Medical history: CHF, COPD, dementia, hyperlipidemia, hypertension, myocardial infarction, renal disease, thyroid disease, other Additional medical history: anemia. UTI. low back pain. bowel obstruction Psychiatric history: anxiety, depression - Past Surgical History Additional surgical history: ex lap with colostomy - Social History Smoking Status: Former smoker Smokeless Tobacco Status: No Alcohol use: unknown Drug use: unknown All Systems Review: The remainder of the systems were reviewed and are negative - Constitutional Constitutional: fatigue - Cardiovascular Cardiovascular: chest pain with exertion, diaphoresis, dyspnea on exertion - Respiratory Respiratory: cough Physical Examination Vital Signs, Last 4 Hours Temp Pulse Resp BP Pulse Ox 04/29/19 08:10 98.5 F 68 20 162/74 92 General: Conversant, No Apparent Distress HEENT: Atraumatic, Normocephaly, Mucus Membranes Moist Neck: No JVD, Normal carotid pulses Cardiac: Reg Rate and Rhythm, Normal S1 and S2, No Murmur Lungs: Other (Wheeze on inspiration on right upper lung field) Neuro: Alert and responsive, No focal deficits noted Abdomen: Soft, Non-Tender Skin: No rashes noted on visualized skin Musculoskeletal: No Chest Wall Tenderness Extremities: No Clubbing, No Cyanosis, No Edema, Normal Pulses Results 04/29/19 02:33 04/29/19 02:33 Lab Results 04/28/19 04/28/19 04/28/19 15:15 15:15 15:15 WBC 8.0 Hgb 10.5 L Hct 34.0 L Plt Count 113 L INR 1.1 APTT 38.9 H Sodium 137 Potassium 4.7 Chloride 98 Carbon Dioxide 24 BUN 65 H Creatinine 7.37 H Glucose 127 H Calcium 8.9 Magnesium Troponin I 0.04 H* TSH 04/28/19 04/28/19 04/28/19 21:06 21:06 21:06 WBC 7.1 Hgb 10.7 L Hct 34.6 L Plt Count 107 L INR 1.1 APTT Sodium Potassium Chloride Carbon Dioxide BUN Creatinine Glucose Calcium Magnesium Troponin I 0.04 H* TSH 04/29/19 04/29/19 04/29/19 02:33 02:33 02:33 WBC 6.5 Hgb 10.7 L Hct 35.3 Plt Count 103 L INR APTT Sodium Potassium Chloride Carbon Dioxide BUN Creatinine Glucose Calcium Magnesium Troponin I 0.04 H* TSH < 0.010 L 04/29/19 02:33 WBC Hgb Hct Plt Count INR APTT Sodium 136 Potassium 4.3 Chloride 98 Carbon Dioxide 25 BUN 70 H Creatinine 8.01 H Glucose 78 Calcium 9.3 Magnesium 2.4 Troponin I TSH - Imaging and Cardiology Chest Xray: report reviewed, image reviewed Echo: pending - EKG Interpretation EKG results cardiology: personally reviewed, sinus rhythm, no diagnostic is chemia
--- NOTE | 2019-04-29 12:06 | Nephrology Consult Note ---
Date of Encounter: 04/29/19 Time of Encounter: 12:04 Assessment and Plan (1) ESRD (end stage renal disease) on dialysis Current Visit: Yes Status: Chronic Current regimen is MWF at [facility]. HD in progress for today. Renal diet Renal vitamins Strict I/O Avoid nephrotoxins and renal dose all medications. (2) Anemia Current Visit: Yes Status: Acute Hgb is 10.7, stable. Goal Hgb o 10-11. Qualifiers: Anemia type: unspecified type Qualified Code(s): D64.9 - Anemia, unspecified (3) NSTEMI (non-ST elevated myocardial infarction) Current Visit: Yes Status: Acute Per cardio. Awaiting echo to help patient decide conservative management vs LHC. (4) PNA (pneumonia) Current Visit: Yes Status: Acute Per primary. Qualifiers: Pneumonia type: due to unspecified organism Qualified Code(s): J18.9 - Pneumonia, unspecified organism History of Present Illness - Reason for Consult Consult date: 04/29/19 end stage renal disease Requesting physician: Katie Moreau - Chief Complaint weakness - History of Present Illness Ms. Jeffers is a 73 year old who presented from an F for weakness and shortness of breath. PMH: CHF, COPD, dementia, hyperlipidemia, hypertension, myocardial infarction. ESRD with current regimen MWF at [facility]. Pt appears to be alert and good historian, however with arrival to ED she was lethargic and unable to speak. Denies nausea, vomiting, diarrhea. Denies chest pain or shortness of breath at this time. Patient has been on dialysis approximately 7 or 8 years, she is unsure as to the indication for hemodialysis at the time. She states she has been off and on 1 dialysis over the years. No family history of chronic kidney disease or hemodialysis. She lives in an extended care facility at this time has been there for approximately one half years. She does still make urine daily. Denies tobacco, EtOH, or illicit drug use. Any kidney specialists were consulted to manage dialysis in the hospital. Will continue her current regimen for now, will add additional UF or HD as needed. Past Med Surg Social Fam HX - Past Medical History Medical history: CHF, COPD, dementia, hyperlipidemia, hypertension, myocardial infarction, renal disease, thyroid disease, other Additional medical history: anemia. UTI. low back pain. bowel obstruction Psychiatric history: anxiety, depression - Past Surgical History Additional surgical history: ex lap with colostomy - Social History Smoking Status: Former smoker Smokeless Tobacco Status: No Alcohol use: unknown Drug use: unknown Medications and Allergies Acetaminophen [Tylenol 650mg SUPP] 650 mg RC Q4HR PRN 04/28/19 [History] Levothyroxine Sodium 200 mcg PO DAILY 04/28/19 [History] Lisinopril 2.5 mg PO DAILY 04/28/19 [History] Ranitidine HCl [Acid Interior Paneler] 150 mg PO DAILY 04/28/19 [History] RisperiDONE [Risperdal] 0.25 mg PO HS 04/28/19 [History] Sevelamer [Renvela] 800 mg PO WMHS 04/28/19 [History] Sodium Bicarbonate 650 mg PO BID 04/28/19 [History] Torsemide 100 mg PO DAILY 04/28/19 [History] ALPRAZolam [Xanax 0.5 MG Tablet] 0.5 mg PO BID 04/29/19 [History] ALPRAZolam [Xanax 0.5 MG Tablet] 0.5 mg PO HS PRN 04/29/19 [History] Acetaminophen [Tylenol] 325 mg PO Q6HR PRN 04/29/19 [History] Aquaphor [Aquaphor w Natural Healing] 50 gm TP PRN PRN 04/29/19 [History] Artificial Tears SOLN [Akwa Tears] 1 drop BOTH EYES BID 04/29/19 [History] Aspirin 81 mg PO DAILY 04/29/19 [History] Atorvastatin Calcium [Lipitor] 40 mg PO DAILY 04/29/19 [History] Carvedilol [Coreg] 6.25 mg PO BIDWM 04/29/19 [History] Citalopram Hydrobromide [Citalopram HBr] 20 mg PO DAILY 04/29/19 [History] Dimethicone/Zinc Oxide [Teo Protect Cream] 142 gm TP PRN PRN 04/29/19 [History] Ferrous Sulfate [Iron] 325 mg PO BID 04/29/19 [History] Folic Acid 1 mg PO DAILY 04/29/19 [History] GuaiFENesin Liq [Robitussin Liq] 200 mg PO Q4HR PRN 04/29/19 [History] Hyoscyamine Sulfate [Oscimin Sl] 0.125 mg SL Q2HR PRN 04/29/19 [History] Ipratropium/Albuterol Sulfate [Iprat-Albut 0.5-3(2.5) mg/3 ml] 3 ml Q6HR 04/29/19 [History] Lactulose 10 gm PO BID 04/29/19 [History] Levothyroxine [Synthroid] 50 mcg PO DAILY 04/29/19 [History] Morphine Oral CONC [Roxanol] 0.25 ml PO Q4H PRN 04/29/19 [History] OxyCODONE Immed Rel [Roxicodone 30 MG] 30 mg PO Q6H PRN 04/29/19 [History] Promethazine [Phenergan] 25 mg PO Q6HR PRN 04/29/19 [History] Promethazine [Phenergan] 25 mg RC Q6HR PRN 04/29/19 [History] Umeclidinium Brm/Vilanterol Tr [Anoro Ellipta 62.5-25 Mcg INH] 1 each IH DAILY 04/29/19 [History] Vitamin B Complex [B Complex] 1 each PO DAILY 04/29/19 [History] cloNIDine HCl [CloNIDine HCl] 0.1 mg PO TID PRN 04/29/19 [History] Allergy/AdvReac Type Severity Reaction Status Date / Time No Known Allergies Allergy Verified 04/28/19 16:07 Review of Systems All Systems review (narrative): The remainder of the systems are negative Constitutional: fatigue, no chills, no fever(s) Cardiovascular: no chest pain, no dyspnea, no edema Gastrointestinal: no diarrhea, no nausea, no vomiting Genitourinary Female: no hematuria, no urinary frequency, no urinary hesitancy, no urinary urgency Exam - Vital Signs Vital signs: Initial Vital Signs Temp Pulse Resp BP Pulse Ox 98.7 F 63 22 166/80 98 04/28/19 15:04 04/28/19 15:04 04/28/19 15:04 04/28/19 15:04 04/28/19 15:04 Vital Signs - Last 8 Hours Temp Pulse Resp BP Pulse Ox 04/29/19 08:10 98.5 F 68 20 162/74 92 04/29/19 05:18 97.5 F L 58 16 145/60 97 Intake and Output 04/28/19 04/29/19 04/29/19 23:59 07:59 15:59 Intake Total 250 / 250 Output Total 100 / 100 Balance 250 / 250 -100 / -32 68 / -32 Intake: IV Fluids 250 / 250 Heparin 25,000 UNIT/250 ML D5W 25,000 unit In 250 ml @ 12 UNIT /KG/HR 4.844 mls/hr IVC .Q24H SLOANE Rx#:[id number] Zithromax 500 MG In Dextrose 5% 250 / 250 250 ML @ 252 mls/hr IVPB Q24H SLOANE Rx#:[id number] Output: Stool 100 / 100 Other: Weight 41.5 kg Blood Glucose* 102 - General Appearance General appearance: well-developed, well-nourished EENT: ATNC, hearing intact, vision intact Neck: supple Respiratory: clear Cardiology: no edema, normal S1, normal S2 - Dialysis Access Dialysis Vascular Access: Venous Catheter (DRSG C/D/I) Gastrointestinal: normoactive bowel sounds, no tenderness, no guarding Integumentary: no rash, warm and dry Neurologic: alert and oriented x3 Musculoskeletal: no deformities, no erythema Psychiatric: mood/affect appropriate, cooperative Results - Lab Results 04/29/19 02:33 04/29/19 02:33 Most recent lab results 04/29/19 02:33 Calcium 9.3 Magnesium 2.4 Consult Discharge Plan - Plan Referrals: Trent Bose MD [Primary Care Provider] -
--- NOTE | 2019-04-29 14:05 | Gastroenterology Consult Note ---
Date of Encounter: 04/29/19 Time of Encounter: 10:40 - Assessment and plan (1) Anemia Current Visit: Yes Status: Acute Assessment and plan: Hgb 10.5 on admission and 10.7 today. Fecal occult blood test was positive. Continue to monitor CBC and transfuse PRBC as needed. Plan for EGD and colonoscopy tomorrow. Clear liquid diet today, no red or purple. NPO at midnight. If unable tolerate NuLytely please use MiraLAX prep. If not clear by 6 AM, give 2 tap water enemas. Qualifiers: Anemia type: unspecified type Qualified Code(s): D64.9 - Anemia, unspecified (2) ESRD (end stage renal disease) on dialysis Current Visit: Yes Status: Chronic Assessment and plan: Management per Nephrology. (3) PNA (pneumonia) Current Visit: Yes Status: Acute Assessment and plan: Management per primary team. Qualifiers: Pneumonia type: due to unspecified organism Qualified Code(s): J18.9 - Pneumonia, unspecified organism - Time Spent With Patient Total time spent is greater than 50% in coordination of care (as documented) at patient's floor/unit and/or counseling patient: GI History of Present Illness - Data of Consult Patient: new to practice Consult date: 04/29/19 Requesting Physician: Katie Moreau - Consult Narrative Reason for consult: Anemia, FOBT positive History of present illness: Ms. Jeffers is a 73 year old female with PMHx of CHF, COPD, dementia, HLD, HTN, MT, bowel obstruction, ex lap with colostomy was brought to the ED from SNF by EMS on 04/28/19 for evaluation of CP described as a non-radiating "weight on her chest" with diaphoresis and SOB. She denies fever, chills, weakness, abdominal pain, nausea, vomiting, hematemesis, or melena. She reports that her stoma occasionally bleeds. Fecal occult blood test was positive. Hgb 10.5 on admission and 10.7 today. Procedures: No record. NSAIDs: ASA Anticoagulation: None Past Med Surg Social Fam HX - Past Medical History Medical history: CHF, COPD, dementia, hyperlipidemia, hypertension, myocardial infarction, renal disease, thyroid disease, other Additional medical history: anemia. UTI. low back pain. bowel obstruction Psychiatric history: anxiety, depression - Past Surgical History Additional surgical history: ex lap with colostomy - Social History Smoking Status: Former smoker Smokeless Tobacco Status: No Alcohol use: unknown Drug use: unknown - Gastrointestinal Gastrointestinal: Present: as per HPI - Constitutional Constitutional: as per HPI - EENT Eyes: as per HPI Ears: Present: as per HPI Nose, mouth and throat: Present: as per HPI - Cardiovascular Cardiovascular ROS: Present: as per HPI - Respiratory Respiratory IM: Present: as per HPI - Genitourinary Genitourinary: Absent: change in color, Urinary frequency - Neurological ROS Neurological GI: Present: as per HPI - Hematologic/Lymphatic Hematologic/Lymphatic pediatric: Present: as per HPI - Musculoskeletal Musculoskeletal ROS GI: Present: as per HPI - Integumentary Integumentary GI: Present: as per HPI - Psychiatric ROS Psychiatric GI: Present: as per HPI - Endocrine Endocrine IM: Present: as per HPI - Constitutional Vitals: Temp Pulse Resp BP Pulse Ox 97.5 F L 68 17 156/108 92 04/29/19 13:55 04/29/19 08:10 04/29/19 13:55 04/29/19 13:55 04/29/19 08:10 General appearance: Present: cooperative, A&O X 3, no acute distress, answers questions appropriately - Head Head exam: Present: atraumatic, normocephalic - Eye Eye exam: Present: normal appearance, sclera anicteric - ENT ENT exam: Present: mucous membranes moist - Neck Neck exam general surgery: Present: normal inspection, trachea midline - Respiratory Respiratory exam: Present: decreased breath sounds, CTAB. Absent: rales, rhonchi - Cardiovascular Cardiovascular exam: Present: RRR, +S1, +S2 - GI/Abdominal GI/Abdominal exam: Present: soft, no peritoneal signs. Absent: distended, firm, guarding, tenderness Additional comments: Ostomy LLQ - Rectal Rectal exam: Present: deferred - Extremities Exam Extremities exam: Present: warm - Neurological Exam Neurological exam: Present: no focal deficits - Psychiatric Psychiatric exam: Present: normal affect, normal mood - Skin Skin exam: Present: dry, intact, normal color, warm Results - Labs CBC & Chem 7: 04/29/19 02:33 04/29/19 02:33 Labs: Last Result 04/29/19 04/29/19 04/29/19 02:33 02:33 02:33 Calcium 9.3 Troponin I 0.04 H* Triglycerides 82 Entire Visit 04/29/19 02:33 Hgb 10.7 L Hct 35.3 - ABG ABG results: PT/INR, D-dimer PT 12.4 Seconds (9.4-12.1) H 04/28/19 21:06 - Impressions Impressions Chest X-Ray 04/28/19 15:01 IMPRESSION: Findings concerning for developing right upper lobe pneumonia. Small right pleural effusion, new. D/ / Danika Nguyen MD / Danika Nguyen MD Interpreting Provider: Danika Nguyen MD Head CT 04/28/19 17:58 IMPRESSION: No acute intracranial abnormality. Slight cerebral atrophy appropriate for age. Mild chronic ischemic changes also age-appropriate. D/ / Tristen Swift MD / Tristen Swift MD Interpreting Provider: Tristen Swift MD Consult Discharge Plan - Plan Referrals: Trent Bose MD [Primary Care Provider] -
[2019-04-29 14:47] LABS: Bilirubin,Urine Negative (Negative); Blood,Urine Negative (Negative); Clarity,Urine Clear (Clear); Color,Urine Yellow (Yellow); Glucose,Urine (UA) Normal (Normal); Ketones,Urine Negative (Negative); Leukocyte Esterase,Urine Negative (Negative); Nitrite,Urine Negative (Negative); PH,Urine 7.5 pH Units (5.0-8.0); Protein,Urine 100 mg/dL (Neg-Trace); Urobilinogen,Urine Normal (Normal)
[2019-04-29 14:50] LABS: Bacteria,Urine Few per hpf (None-Few); Hyaline Casts,Urine None Seen per lpf (None-Few); Squamous Epithelial Cell,Urine Many per lpf (None-Few)
[2019-04-29] MEDS ORDERED: ALPRAZolam 0.5 MG TABLET PO ONE (16:13)
--- NOTE | 2019-04-29 16:24 | Event Note ---
Date of Encounter: 04/29/19 Time of Encounter: 09:10 to serve as attending attestation pending completion of the resident daily prog note I examined this patient and my medical decision-making was reviewed with the Resident Physician Dr Beltran. I agree with the documented findings, disposition and treatment plan as described except to the extent set forth below. Ms Jeffers is being observed for NSTEMI and pna asleep, awakes to name, no family present. answers all questions appropriately. denies cp, pressure, + sob but none at rest on o2 nc, + cough and denies wheezing. gen- alert, awake,appears stated age eyes- pupils equal round cv- reg rate and rhythm, normal s1,s2, no le edema or jvd lungs- ctabl, no wheezing, rhonchi or crackles, normal resp effort on o2 nc abd- soft, non tender, ostomy with ruiz/yellow output neuro- AAOx3, CN grossly intact NSTEMI- apprecate cards input, cont hep gtt, echo pending and then pt to decide LHC vs conservative med management, asa + statin + BB Pna, RUL, org unknown- cont IV abx, attempt ot ID organism acute hypoxic resp failure 2/2 pna + nstemi- cont o2 nc at this time regardless of ability to wean given NSTEMI ESRD- HD as per nephro Somnolence, resolved- she is a hard sleeper but is AAOx3 Hypothyroidism but TSH low and T4 elevated on key esynthroid regimen- unsure if this could have contributed to cardiac sxs- at this time cont tele, hold synthroid, she will require dose reduction and close pcp fu outpt Pre DM- A1C 6.3%, outpt fu Anemia and occult stool +- appreciate gi input, egd/cscope in am
--- NOTE | 2019-04-29 16:31 | Electrocardiograph Report ---
[address] [address] Test Date: 2019-04-28 Pat Name: Eugenia Jeffers Department: [id number] Room: 2A38 Gender: F Dietary Worker: : 1945 Requested By: [id number] Order Number: [id number] Reading MD: Galen García Measurements Intervals Buckner Rate: 63 P: 57 AK: 128 QRS: 10 QRSD: 99 T: -84 QT: 436 QTc: 447 Interpretive Statements Sinus rhythm LVH with secondary repolarization abnormality Anterior Q waves, possibly due to LVH Electronically Signed On 04-29-2019 16:29:33 EDT by Galen García
[2019-04-29] MEDS ORDERED: ZINC OXIDE TP PRN (16:40)
[2019-04-29] MEDS ORDERED: DIMETHICONE TP PRN (16:40)
[2019-04-29] MEDS ORDERED: SODIUM CHLORIDE/NAHCO3/KCL/PEG 4,000 ML SOLN.RECON PO ONE (17:00)
[2019-04-29] MEDS ORDERED: Perflutren Lipid Microsphere 1.3 ML in 0.9 % Sodium Chloride 8.7 ML IVP ONE (17:55)
[2019-04-29] MEDS ORDERED: cefTRIAXone 1,000 MG in Water for inj. (sterile) 10 ML IVP SCH (18:16)
--- NOTE | 2019-04-29 19:34 | Anesthesia Evaluation PreOp ---
Date of Encounter: 04/29/19 Time of Encounter: 19:32 - Past History Planned Operation: colonoscopy Cardiac History: DC, CHF, HTN, Hyperlipidemia, Other (anemia) Pulmonary History: COPD, Other (pneumonia) CAR HIKER History: Other (Dementia) Other Medical History: Renal (ESRD), Thyroid (Hypo), Other Anesthesia History: No Prior Anesthetic Complications, Past Anesthesia (Ex[p. La p with Colostomy) : No Alcohol Use: unknown Drug use: unknown Medications and Allergies Acetaminophen [Tylenol 650mg SUPP] 650 mg RC Q4HR PRN 04/28/19 [History] Levothyroxine Sodium 200 mcg PO DAILY 04/28/19 [History] Lisinopril 2.5 mg PO DAILY 04/28/19 [History] Ranitidine HCl [Acid Small Stock Facer] 150 mg PO DAILY 04/28/19 [History] Sodium Bicarbonate 650 mg PO BID 04/28/19 [History] Torsemide 100 mg PO DAILY 04/28/19 [History] ALPRAZolam [Xanax 0.5 MG Tablet] 0.5 mg PO BID@0800,1700 04/29/19 [History] ALPRAZolam [Xanax 0.5 MG Tablet] 0.5 mg PO HS PRN 04/29/19 [History] Acetaminophen [Tylenol] 325 mg PO Q6HR PRN 04/29/19 [History] Acetaminophen [Tylenol] 650 mg PO Q6HR PRN 04/29/19 [History] Aquaphor [Aquaphor w Natural Healing] 1 appl TP AD 04/29/19 [History] Aspirin 81 mg PO DAILY 04/29/19 [History] Atorvastatin [Lipitor] 40 mg PO DAILY 04/29/19 [History] Carvedilol [Coreg] 12.5 mg PO BID 04/29/19 [History] Citalopram Hydrobromide [Citalopram HBr] 20 mg PO DAILY 04/29/19 [History] Dimethicone/Zinc Oxide [Teo Protect Cream] 142 gm TP AD PRN 04/29/19 [History] Ferrous Sulfate 325 mg PO BID 04/29/19 [History] Folic Acid 1 mg PO DAILY 04/29/19 [History] Glycerin/Propylene Glycol [Artificial Tears Drops] 1 drop BOTH EYES BID 04/29/19 [History] GuaiFENesin/Dextromethorphan [Robafen Dm Cgh-Chest Manuel Syrp] 10 ml PO Q4H PRN 04/29/19 [History] Hyoscyamine Sulfate [Oscimin Sl] 0.125 mg SL Q2H PRN 04/29/19 [History] Ipratropium/Albuterol Sulfate [Iprat-Albut 0.5-3(2.5) mg/3 ml] 3 ml IH Q6HR PRN 04/29/19 [History] Lactulose 10 gm PO BID 04/29/19 [History] Levothyroxine [Synthroid] 50 mcg PO DAILY 04/29/19 [History] Morphine Oral CONC [Roxanol] 5 mg SL Q4H PRN 04/29/19 [History] OxyCODONE Immed Rel [Roxicodone 30 MG] 30 mg PO QID 04/29/19 [History] Potassium Chloride [K-Tab ER] 40 meq PO 1200 04/29/19 [History] Promethazine [Phenergan] 25 mg PO Q6HR PRN 04/29/19 [History] Promethazine [Phenergan] 25 mg RC Q6HR PRN 04/29/19 [History] Daily-Marli 1 tab PO DAILY 04/29/19 [History] Sevelamer HCl [Renagel] 1,600 mg PO TIDWM 04/29/19 [History] Umeclidinium Brm/Vilanterol Tr [Anoro Ellipta 62.5-25 Mcg INH] 1 puff IH DAILY 04/29/19 [History] Vitamin B Complex [B Complex] 1 tab PO DAILY 04/29/19 [History] cloNIDine HCl [CloNIDine HCl] 0.1 mg PO Q8H PRN 04/29/19 [History] Allergy/AdvReac Type Severity Reaction Status Date / Time No Known Allergies Allergy Verified 04/29/19 15:40 - Meds/Allergy Pre-op Review Medications Reviewed: Yes Allergies Reviewed: Yes Beta Blockers on Current Med List: Yes If Beta Blockers taken, Date/Time (Last Dose taken): 04/29/19 21:00 Anesthesia Results - Labs 04/29/19 02:33 04/29/19 02:33 - Imaging EKG: report reviewed (Sinus rhythm LVH with secondary repolarization abnormality Anterior Q waves, possibly due to LVH Electronically Signed On 04-29-2019 16:29:33 EDT by Galen García) Anesthesia Exam Vital Signs/O2 Sat, Most Current Temp Pulse Resp BP Pulse Ox 98.6 F 66 16 178/79 92 04/29/19 19:27 04/29/19 19:27 04/29/19 19:27 04/29/19 19:27 04/29/19 19:27 NPO (# of Hours): > 8 hrs Pain Scale: 0 Pain Scale Used: Numeric (1 - 10) - HEENT Pupil (Motor): Pupils equal, EOMI Mallampati: II Teeth: Edentulous Oral Opening: Greater than 3 - CAR HIKER LOC: Oriented CAR HIKER Motor: Normal RUE, Normal LUE, Normal RLE, Normal LLE, Normal Face CAR HIKER Sensory: Normal: RUE, LUE, RLE, LLE, Face - Cardiac Rhythm: Regular Murmur: None JVD: No Carotid Bruit: No - Pulmonary Breath Sounds: bilateral Clear Respiratory Effort: Symmetrical Anesthesia Assess/Plan ASA Score: 4 Level of consciousness: Cooperative Anesthetic Plan: MAC Autologous Blood: Yes Monitoring Plan: Standard Monitors Recovery Plan: Other
[2019-04-29] MEDS: Artificial Tears SOLN 15 ML BOTTLE BOTH EYES SCH (20:13)
[2019-04-30] MEDS: Pantoprazole 40 MG VIAL IVP SCH ×2 (05:42→16:08)
[2019-04-30 06:35] LABS: Basophils % 0.1 %; Hematocrit 36.8 % (35.3-44.9); Hemoglobin 11.8 g/dL (11.5-15.4); Immature Granulocytes % 0.9 % (0-4); Lymphocytes # 1.9 K/mcL (0.6-4.6); Lymphocytes % 23.8 %; Mean Corpuscular HGB Conc 32.1 g/dL (31.6-35.5); Mean Corpuscular Hemoglobin 29.9 pg (28.0-33.3); Mean Corpuscular Volume 93.2 fL (83.0-100.0); Mean Platelet Volume 11.5 fL (9.4-12.4); Monocytes # 0.8 K/mcL (0.0-1.3); Monocytes % 10.1 %; Neutrophils # 5.2 K/mcL (1.6-8.9); Platelet Count 133 K/mcL (140-400); Red Blood Count 3.95 M/mcL (3.82-4.97); Red Cell Distribution Width 14.4 % (11.5-14.5); Segmented Neutrophils % 65.1 %; White Blood Count 7.9 K/mcL (4.3-11.1)
[2019-04-30] MEDS ORDERED: Desitin (Zinc Oxide) 56 GM TUBE TP PRN ×2 (07:13→07:15)
--- NOTE | 2019-04-30 07:25 | Internal Med Progress Note ---
<Madelyn Beltran Danny - Last Filed: 04/30/19 16:59> Hospitalist Progress Note - Encounter Date of Encounter: 04/30/19 Time of Encounter: 08:00 - Subjective Interval History: Patient is a 73-year-old female admitted for observation after an STEMI and pneumonia. Patient seen and examined at bedside today in the presence of her sister and daughter. Patient denies hematemesis, hematochezia, hematouria, chest pain, SOB. Admits to back pain which is chronic for her in nature. - Exam Vitals: Temp Pulse Resp BP Pulse Ox 98.6 F 57 18 161/68 96 04/30/19 06:54 04/30/19 06:54 04/30/19 06:54 04/30/19 06:54 04/30/19 06:54 Exam: General: Awake, alert,A&Ox3, appears cechectic Neck: supple, trachea midline, without thyromegaly or cervial lymphadenopathy. Cardiovascular: irregularly irregular rate and rhythm, no rubs, murmurs. No JVD. radial pulses 2+, no lower extremity edema Lungs: course breath sounds in Posterior RUL, no wheezes, or crackles. decreased respiratory effort, poor lung expansion. Abdomen:Soft, non-tender, non-distended, no rigidity, bowel soundsx4 , ostomy in LLQ with brown output clean no fecal odor. previous surgical scar midline. Extremities:No deformity, no edema or tenderness, no joint swelling or clubbing. Skin:Normal color, no rash, no pallor, no jaundice neuro: no focal deficits, cooperative with exam. - Assessment and Plan (1) NSTEMI (non-ST elevated myocardial infarction) Current Visit: Yes Status: Acute Assessment and Plan: Per cardio recommendations: - discontinue heparin - continue asa, statin, bb, add imdur. - cardio has signed off. - Echo: EF 60% with LVH - moderate aortic regurgitation. (2) PNA (pneumonia) Current Visit: Yes Status: Acute Assessment and Plan: - Patient WBC are WNL. - unable to identify organism. - Complete course of antibiotics. - encourage incentive spirometry - continue to wean oxygen. (3) Somnolence Current Visit: Yes Status: Resolved Assessment and Plan: There i no longer concern for somnolence due to medication changes. - resume home medications of xanax bid for anxiety - continue to add other home medications gradually to identify causal agents of somnolence. (4) ESRD (end stage renal disease) on dialysis Current Visit: Yes Status: Chronic Assessment and Plan: Continue with Nephro recs: - renal diet - renal vitamins - strict I/o - Avoid nephrotoxins and renal dose medications. (5) Anemia Current Visit: Yes Status: Resolved Assessment and Plan: - Uptrending hgb 11.8, - GI consulted: - EGD completed: - hiatal hernia, mild inflammation in the stomach - Colonoscopy tomorrow - Prep with mag citrate. - Clear liquid diet. (6) HTN (hypertension) Current Visit: Yes Status: Chronic Assessment and Plan: add torsemide to medication regimen. monitor bp with vital checks q4H. - Time Spent with Patient Total time spent is greater than 50% in coordination of care (as documented) at patient's floor/unit and/or counseling patient: Internal Medicine: Result - Labs CBC & Chem 7: 04/30/19 06:20 04/30/19 08:09 Labs: Short CBC 04/30/19 Range/Units 06:20 WBC 7.9 (4.3-11.1) K/mcL Hgb 11.8 (11.5-15.4) g/dL Hct 36.8 (35.3-44.9) % Plt Count 133 L (140-400) K/mcL Neutrophils # 5.2 (1.6-8.9) K/mcL BMP 04/29/19 02:33 Sodium 136 Potassium 4.3 Chloride 98 Carbon Dioxide 25 BUN 70 H Creatinine 8.01 H Glucose 78 Calcium 9.3 Urine 04/29/19 Range/Units 14:15 Urine Color Yellow (Yellow) Urine Clarity Clear (Clear) Urine pH 7.5 (5.0-8.0) pH Units Ur Specific Gracey 1.010 (1.010-1.025) Urine Protein 100 H (Neg-Trace) mg/dL Urine Glucose (UA) Normal (Normal) mg/dL - ABG Interpretation ABG results: PT/INR, D-dimer PT 12.4 Seconds (9.4-12.1) H 04/28/19 21:06 Consult Discharge Plan - Plan Referrals: Trent Bose MD [Primary Care Provider] - <Katie Moreau M - Last Filed: 04/30/19 17:55> Hospitalist Progress Note - Encounter Date of Encounter: 04/30/19 - Exam Vitals: Temp Pulse Resp BP Pulse Ox 97.9 F 79 22 110/70 96 04/30/19 16:24 04/30/19 16:24 04/30/19 16:24 04/30/19 16:24 04/30/19 16:24 - Assessment and Plan (1) NSTEMI (non-ST elevated myocardial infarction) Current Visit: Yes Status: Acute (2) Somnolence Current Visit: Yes Status: Resolved (3) ESRD (end stage renal disease) on dialysis Current Visit: Yes Status: Chronic (4) PNA (pneumonia) Current Visit: Yes Status: Acute (5) Anemia Current Visit: Yes Status: Resolved (6) Thrombocytopenia Current Visit: Yes Status: Chronic (7) HTN (hypertension) Current Visit: Yes Status: Chronic - Time Spent with Patient Total time spent is greater than 50% in coordination of care (as documented) at patient's floor/unit and/or counseling patient: Internal Medicine: Result - Labs CBC & Chem 7: 04/30/19 06:20 04/30/19 08:09 Labs: Short CBC 04/30/19 Range/Units 06:20 WBC 7.9 (4.3-11.1) K/mcL Hgb 11.8 (11.5-15.4) g/dL Hct 36.8 (35.3-44.9) % Plt Count 133 L (140-400) K/mcL Neutrophils # 5.2 (1.6-8.9) K/mcL BMP 04/30/19 08:09 Sodium 136 Potassium 4.5 Chloride 95 L Carbon Dioxide 24 BUN 50 H Creatinine 6.19 H Glucose 79 Calcium 9.5 - ABG Interpretation ABG results: PT/INR, D-dimer PT 12.4 Seconds (9.4-12.1) H 04/28/19 21:06 - Impressions Impressions Echocardiogram 04/28/19 17:34 Impressions: LVEF 60%. Moderate concentric left ventricular hypertrophy. Mild left ventricular diastolic dysfunction. Normal right ventricular structure and function. Mild tricuspid regurgitation. No evidence of pulmonary hypertension. Moderate aortic regurgitation of unclear mechanism. Left Ventricular Wall Motion: Rest Echo Findings All wall segments showed normal motion. Findings: Study Quality * Technically sub-optimal due to poor echocardiographic windows. ECG Findings * Sinus rhythm with BBB. Left Ventricle * LVEF 60%. * Moderate concentric left ventricular hypertrophy. * Mild left ventricular diastolic dysfunction. * Normal LV chamber size. Right Ventricle * Normal right ventricular structure and function. Left Atrium * Normal left atrial size. Right Atrium * Normal right atrial size. Aortic Valve * Aortic valve not well visualized. * Moderate aortic regurgitation. * No aortic stenosis. Mitral Valve * Normal mitral valve structure. * No mitral regurgitation. * No mitral stenosis. Tricuspid Valve * Mild tricuspid regurgitation. * No tricuspid stenosis. * Normal tricuspid valve structure. * No evidence of pulmonary hypertension. Pulmonic Valve * Pulmonic valve not well visualized. Aorta * Aortic root was not well visualized Pericardium * The pericardium appears normal. IVC * Normal IVC dimensions and inspiratory collapse. Pulmonary Artery * Pulmonary artery not well visualized. - Attending Attestation I examined this patient and my medical decision-making was reviewed with the Resident Physician Dr Beltran. I agree with the documented findings, disposition and treatment plan as described except to the extent set forth below. Ms Jeffers is being observed for NSTEMI and pna awake, family at bedside, cough improved, no sob, f/c. denies cp, palpitations. gen- alert, awake,appears stated age cv- reg rate and rhythm, normal s1,s2 lungs-+ exp wheezing rhonchi or crackles, normal resp effort on o2 nc abd- soft, non tender neuro- AAOx3 NSTEMI- appreciate cards input,can dc gtt, pt opted for med maangement, no LHC, imdur added + asa + statin + BB Pna, RUL, org unknown- cont IV abx acute hypoxic resp failure 2/2 pna + nstemi- wean o2 ESRD- HD as per nephro Somnolence, resolved Hypothyroidism but TSH low and T4 elevated on home synthroid regimen- unsure if this could have contributed to cardiac sxs- at this time cont tele, hold synthroid, she will require dose reduction and close pcp fu outpt Pre DM- A1C 6.3%, outpt fu Anemia and occult stool +- appreciate gi input, egd today and did not complete cscope prep <Madelyn Beltran L - Last Filed: 04/30/19 16:59> (2) PNA (pneumonia) Qualifiers: Pneumonia type: due to unspecified organism Laterality: unspecified laterality Lung location: unspecified part of lung Qualified Code(s): J18.9 - Pneumonia, unspecified organism (5) Anemia Qualifiers: Anemia type: unspecified type Qualified Code(s): D64.9 - Anemia, unspecified (6) HTN (hypertension) Qualifiers: Hypertension type: essential hypertension Qualified Code(s): I10 - Essential (primary) hypertension <Katie Moreau M - Last Filed: 04/30/19 17:55> (4) PNA (pneumonia) Qualifiers: Pneumonia type: due to unspecified organism Laterality: unspecified laterality Lung location: unspecified part of lung Qualified Code(s): J18.9 - Pneumonia, unspecified organism (5) Anemia Qualifiers: Anemia type: unspecified type Qualified Code(s): D64.9 - Anemia, unspecified (7) HTN (hypertension) Qualifiers: Hypertension type: essential hypertension Qualified Code(s): I10 - Essential (primary) hypertension
[2019-04-30] MEDS: Aspirin Enteric Coated 81 MG Tablet PO SCH ×2 (07:28→07:41)
[2019-04-30] MEDS: Renal Vitamin 1 CAP CAPSULE PO SCH ×2 (07:28→07:41)
[2019-04-30] MEDS: Azithromycin 250 MG TABLET PO SCH (07:41)
[2019-04-30] MEDS: cefTRIAXone 1,000 MG in Water for inj. (sterile) 10 ML IVP SCH (07:41)
[2019-04-30] MEDS: Heparin 25,000 UNIT/250 ML D5W 25,000 UNIT/250 ML IV.SOLN IVC SCH (07:43)
[2019-04-30] MEDS: Artificial Tears SOLN 15 ML BOTTLE BOTH EYES SCH ×2 (07:45→20:40)
[2019-04-30] MEDS ORDERED: VILANTEROL TR IH SCH (09:00)
[2019-04-30] MEDS ORDERED: UMECLIDINIUM BRM IH SCH (09:00)
[2019-04-30 09:18] LABS: Calcium 9.5 mg/dL (8.6-10.3); Phosphorous 6.9 mg/dL (2.7-4.5); Potassium 4.5 mEq/L (3.5-5.1)
[2019-04-30] MEDS ORDERED: Budesonide/Formoterol 160/4.5 1 PUFF INH IH SCH (10:00)
[2019-04-30] MEDS ORDERED: Tiotropium 18 MCG inhalation IH SCH (10:00)
[2019-04-30] MEDS: Tiotropium 18 MCG inhalation IH SCH (10:31)
[2019-04-30] MEDS ORDERED: Lidocaine -MPF 2% 2 ML VIAL ONE (11:03)
[2019-04-30] MEDS ORDERED: Propofol 500 MG/50 ML INFUS..BTL ONE (11:03)
--- NOTE | 2019-04-30 13:56 | Cardiology Progress Note ---
Date of Encounter: 04/30/19 Time of Encounter: 12:00 Assessment and Plan (1) NSTEMI (non-ST elevated myocardial infarction) Current Visit: Yes Status: Acute Patient presented with atypical chest pain. Found to have mild adynamic troponin elevation (0.04x3). EKG with new ischemic changes compared to 2013. Changes also in the setting of ESRD and PNA. TTE reviewed with patient. EF preserved and no WMA. Moderate aortic regurgitation seen. LHC R/B/A reviewed. LHC vs medical management discussed. Pt does not want to proceed with LHC at this time. Prefers medical management. States that she feels like she is going through to much right now. At this point heparin gtt can be discontinued. Continue asa, statin, bb, and add imdur. Cardiology will sign off. Call with changes or concern. Thanks. Discussion w patient/family: The assessment and plan as outlined above was discussed with the patient and/or family members who expressed understanding and agreement. All questions were answered. Thank you for involving us in the care of your patient. Please call with any questions. Subjective Principal diagnosis: chest pain Interval history: Ms. Jeffers reports one episode of atypical right sided chest pain this morning that was relieved with no intervention. Otherwise no other complaints. Objective Vital Signs, Last 4 Hours Temp Pulse Resp BP Pulse Ox 04/30/19 12:35 98.8 F 61 18 148/57 98 04/30/19 11:41 98.8 F 57 16 154/67 98 04/30/19 10:31 18 98 General: Conversant, No Apparent Distress HEENT: Atraumatic, Normocephaly, Mucus Membranes Moist Neck: No JVD, Normal carotid pulses Cardiac: Reg Rate and Rhythm, Normal S1 and S2, No Murmur Lungs: Normal Breath Sounds, No Wheeze, Rales, Rhonchi Neuro: Alert and responsive, No focal deficits noted Abdomen: Soft, Non-Tender Skin: No rashes noted on visualized skin Musculoskeletal: No Chest Wall Tenderness Extremities: No Clubbing, No Cyanosis, No Edema, Normal Pulses Results 04/30/19 06:20 04/30/19 08:09 Lab Results 04/30/19 04/30/19 06:20 08:09 WBC 7.9 Hgb 11.8 Hct 36.8 Plt Count 133 L Sodium 136 Potassium 4.5 Chloride 95 L Carbon Dioxide 24 BUN 50 H Creatinine 6.19 H Glucose 79 Calcium 9.5 - Imaging and Cardiology Echo: report reviewed - EKG Interpretation EKG results cardiology: personally reviewed Consult Discharge Plan - Plan Referrals: Trent Bose MD [Primary Care Provider] -
--- NOTE | 2019-04-30 14:12 | Anesthesia Evaluation Post Op ---
Date of Encounter: 04/30/19 Time of Encounter: 14:11 - Vital Signs Vital Signs: Vital Signs/O2 Sat, Most Current Temp Pulse Resp BP Pulse Ox 98.8 F 61 18 148/57 98 04/30/19 12:35 04/30/19 12:35 04/30/19 12:35 04/30/19 12:35 04/30/19 12:35 - Lungs Lungs: Clear Ascult./Percussion - Airway Airway: Non-obstructed - Cardiovascular Regular Rate - Mental Status Mental Status: Alert & Oriented, Answers Appropriately - Pain Pain Scale: 0 Pain Scale used: Numeric (1 - 10) - Nausea Vomiting Nausea Vomiting: Not Present - Hydration Hydration: NPO, Has not voided - Discharge PostOp Status: Transfer Patient to floor
[2019-04-30] MEDS: Isosorbide MONOnitrate (24 HR) 30 MG TAB.ER.24H PO SCH (16:08)
[2019-04-30] MEDS: *HR* Heparin 5,000 UNIT/ML VIAL SQ SCH (16:21)
[2019-04-30] MEDS: Ondansetron 4 MG/2 ML VIAL IVP PRN (16:30)
[2019-04-30] MEDS ORDERED: ALPRAZolam 0.5 MG TABLET PO PRN (16:45)
[2019-04-30] MEDS: ALPRAZolam 0.5 MG TABLET PO SCH (20:43)
--- NOTE | 2019-04-30 20:49 | Nephrology Progress Note ---
Date of Encounter: 04/30/19 Time of Encounter: 16:30 - Assessment and Plan (1) ESRD (end stage renal disease) on dialysis Current Visit: Yes Status: Chronic Current regimen is MWF at [facility]. HD completed yesterday without complication. Plan for HD tomorrow before repeat colonoscopy. Renal diet Renal vitamins Strict I/O Avoid nephrotoxins and renal dose all medications. (2) Anemia Current Visit: Yes Status: Resolved Hgb is 11.8 stable. Goal Hgb 10-11. Qualifiers: Anemia type: unspecified type Qualified Code(s): D64.9 - Anemia, unspecified (3) NSTEMI (non-ST elevated myocardial infarction) Current Visit: Yes Status: Acute Cardio has signed off, continue medical management. (4) PNA (pneumonia) Current Visit: Yes Status: Acute Per primary. Qualifiers: Pneumonia type: due to unspecified organism Laterality: unspecified laterality Lung location: unspecified part of lung Qualified Code(s): J18.9 - Pneumonia, unspecified organism Subjective Principal diagnosis: chest pain Interval history: Pt seen and at bedside. Family at bedside. Pt drowsy from EGD and colonoscopy. Admits to vomiting. Denies chest pain or shortness of breath. Objective - Vital Signs Vital signs: Vital Signs Temp Pulse Resp BP Pulse Ox 04/30/19 16:24 97.9 F 79 22 110/70 96 04/30/19 12:35 98.8 F 61 18 148/57 98 04/30/19 11:41 98.8 F 57 16 154/67 98 04/30/19 10:31 18 98 04/30/19 06:54 98.6 F 57 18 161/68 96 04/30/19 04:42 97.8 F 57 17 162/68 96 04/30/19 00:52 97.8 F 59 16 156/67 93 Intake and Output 04/30/19 04/30/19 04/30/19 07:59 15:59 23:59 Intake Total 48.7 / 110.7 0 / 110.7 62 / 110.7 Output Total 200 / 200 Balance -151.3 / -89.3 0 / -89.3 62 / -89.3 Intake: IV Fluids 48.7 / 110.7 62 / 110.7 Heparin 25,000 UNIT/250 ML D5W 48.7 / 100.7 52 / 100.7 25,000 unit In 250 ml @ 12 UNIT /KG/HR 4.844 mls/hr IVC .Q24H [facility] Rx#:[id number] Rocephin 1,000 MG In Water for inj. (sterile) 10 ML @ 600 mls/ hr IVP DAILY [facility] Rx#:[id number] Oral 0 / 0 0 / 0 Output: Stool 200 / 200 Other: Meal NPO Lunch Percent of Meal Consumed 0% 0% Stool Consistency liquid Stool Characteristics Seedy Stool Color Brown Green Weight 42 kg Blood Glucose* 88 81 72 Patient Weight 04/30/19 23:59 Weight 42 kg - General Appearance General appearance: Present: chronically ill, frail EENT: Present: ATNC, hearing intact, vision intact Neck: Present: supple Respiratory: Present: clear Cardiology: Present: no edema, normal S1, normal S2 Dialysis Vascular Access: Venous Catheter Additional Comments: DRSG C/D/I Gastrointestinal: Present: normoactive bowel sounds, no tenderness, no guarding Integumentary: Present: no rash, warm and dry Neurologic: Present: alert and oriented x3 Musculoskeletal: Present: no deformities, no erythema Psychiatric: Present: mood/affect appropriate, cooperative - Lab 04/30/19 06:20 04/30/19 08:09 Most recent lab results 04/30/19 08:09 Calcium 9.5 Phosphorus 6.9 H Consult Discharge Plan - Plan Referrals: Trent Bose MD [Primary Care Provider] -
[2019-04-30] MEDS ORDERED: Acetaminophen IV 500 MG/50 ML INFUS..BTL IVPB ONE (21:05)
[2019-05-01 02:01] LABS: Hematocrit 39.4 % (35.3-44.9); Hemoglobin 12.3 g/dL (11.5-15.4); Mean Corpuscular HGB Conc 31.2 g/dL (31.6-35.5); Mean Corpuscular Hemoglobin 29.6 pg (28.0-33.3); Mean Corpuscular Volume 94.7 fL (83.0-100.0); Mean Platelet Volume 11.1 fL (9.4-12.4); Platelet Count 147 K/mcL (140-400); Red Blood Count 4.16 M/mcL (3.82-4.97); Red Cell Distribution Width 14.5 % (11.5-14.5)
[2019-05-01 02:20] LABS: Calcium 9.5 mg/dL (8.6-10.3)
[2019-05-01] MEDS: Pantoprazole 40 MG VIAL IVP SCH (05:44)
[2019-05-01] MEDS: *HR* Heparin 5,000 UNIT/ML VIAL SQ SCH (05:44)
[2019-05-01] MEDS: Tiotropium 18 MCG inhalation IH SCH (07:25)
[2019-05-01] MEDS: Aspirin Enteric Coated 81 MG Tablet PO SCH (07:59)
[2019-05-01] MEDS: Renal Vitamin 1 CAP CAPSULE PO SCH (07:59)
[2019-05-01] MEDS: Azithromycin 250 MG TABLET PO SCH (07:59)
[2019-05-01] MEDS: Isosorbide MONOnitrate (24 HR) 30 MG TAB.ER.24H PO SCH (07:59)
[2019-05-01] MEDS: ALPRAZolam 0.5 MG TABLET PO SCH (08:00)
[2019-05-01] MEDS: cefTRIAXone 1,000 MG in Water for inj. (sterile) 10 ML IVP SCH (08:00)
[2019-05-01] MEDS: Artificial Tears SOLN 15 ML BOTTLE BOTH EYES SCH (08:02)
[2019-05-01] MEDS ORDERED: 0.9 % Sodium Chloride 250 ML IVC PRN (08:13)
[2019-05-01] MEDS ORDERED: *HR* Heparin 10,000 UNIT/10 ML VIAL IV PRN ×2 (08:13)
[2019-05-01] MEDS ORDERED: 0.9 % Sodium Chloride 1,000 ML PRIME SCH (08:15)
[2019-05-01] MEDS ORDERED: Torsemide 20 MG TABLET PO SCH (09:00)
--- NOTE | 2019-05-01 09:41 | Discharge Summary ---
- NOTES TO OUTPATIENT PROVIDER Notes to Outpatient Provider: Pt presented with chest pain - medical management. Also was anemic. EGD showed gastritis. Does not want colonoscopy. Thyroid function abnormal - will need dose adjustment. Date of Encounter: 05/01/19 Time of Encounter: 09:30 - Discharge Diagnosis (1) NSTEMI (non-ST elevated myocardial infarction) Priority: Primary Status: Acute (2) ESRD (end stage renal disease) on dialysis Priority: Secondary Status: Chronic (3) PNA (pneumonia) Priority: Secondary Status: Acute Qualifiers: Pneumonia type: due to unspecified organism Laterality: right Lung location: upper lobe of lung Qualified Code(s): J18.1 - Lobar pneumonia, unspecified organism (4) Anemia Priority: Secondary Status: Chronic Qualifiers: Anemia type: due to chronic kidney disease Chronic kidney disease stage: on chronic dialysis Qualified Code(s): N18.6 - End stage renal disease; D63.1 - Anemia in chronic kidney disease; Z99.2 - Dependence on renal dialysis (5) Thrombocytopenia Priority: Secondary Status: Chronic (6) Somnolence Priority: Secondary Status: Resolved (7) HTN (hypertension) Priority: Secondary Status: Chronic Qualifiers: Hypertension type: essential hypertension Qualified Code(s): I10 - Essential (primary) hypertension (8) Respiratory failure Priority: Primary Status: Acute Qualifiers: Chronicity: acute Respiratory failure complication: hypoxia Qualified Code(s): J96.01 - Acute respiratory failure with hypoxia Hospital course: Ms. Jeffers is a 73 year old female with hx of ESRD on HD presented to ED with chest pain and somnolence. Found to have elevated troponin and subsequently admitted. Ms Jeffers was admitted to [facility] with acute NSTEMI. She was started on heparin drip and seen by cardiology. She elected to have medical management. Pneumonia found on CXR. She was placed on IV Azithromycin and Rocephin. She was also noted to be anemic with guiac positive stool. She was evaluated by GI and had EGD showing gastritis and colonoscopy - poor prep. She did not want repeat colonoscopy. Today she is afebrile and appears to be at baseline. She does not want further testing and has no chest pain. She is to be discharged home. Discharge discussed with: patient - Time Spent with Patient Total time spent providing and/or coordinating discharge services: 40min - Discharge Medications Prescriptions: New Dexlansoprazole [Dexilant] 30 mg PO DAILY #1 bp Isosorbide MONOnitrate (24 HR) [Imdur] 30 mg PO DAILY tab.er.24h Nitroglycerin 0.4 mg SL Q5MPRN PRN tab.subl PRN Reason: Chest Pain Oxycodone HCl 10 mg PO QID PRN 1 Days #10 tablet PRN Reason: Pain Continued Acetaminophen [Tylenol 650mg SUPP] 650 mg RC Q4HR PRN PRN Reason: Fever Sodium Bicarbonate 650 mg PO BID Torsemide 100 mg PO DAILY Lisinopril 2.5 mg PO DAILY Levothyroxine Sodium 200 mcg PO DAILY Lactulose 10 gm PO BID Folic Acid 1 mg PO DAILY Citalopram Hydrobromide [Citalopram HBr] 20 mg PO DAILY Carvedilol [Coreg] 12.5 mg PO BID Vitamin B Complex [B Complex] 1 tab PO DAILY Umeclidinium Brm/Vilanterol Tr [Anoro Ellipta 62.5-25 Mcg INH] 1 puff IH DAILY Aspirin 81 mg PO DAILY ALPRAZolam [Xanax 0.5 MG Tablet] 0.5 mg PO BID@0800,1700 Levothyroxine [Synthroid] 50 mcg PO DAILY Ipratropium/Albuterol Sulfate [Iprat-Albut 0.5-3(2.5) mg/3 ml] 3 ml IH Q6HR PRN PRN Reason: COPD Dimethicone/Zinc Oxide [Teo Protect Cream] 142 gm TP AD PRN PRN Reason: PREVENT SKIN BREAKDOWN Promethazine [Phenergan] 25 mg PO Q6HR PRN PRN Reason: Nausea, VOMITING Promethazine [Phenergan] 25 mg RC Q6HR PRN PRN Reason: Nausea And Vomiting Acetaminophen [Tylenol] 325 mg PO Q6HR PRN PRN Reason: Pain ALPRAZolam [Xanax 0.5 MG Tablet] 0.5 mg PO HS PRN PRN Reason: Anxiety Acetaminophen [Tylenol] 650 mg PO Q6HR PRN PRN Reason: Pain Aquaphor 1 appl TP AD Atorvastatin [Lipitor] 40 mg PO DAILY Ferrous Sulfate 325 mg PO BID Glycerin/Propylene Glycol [Artificial Tears Drops] 1 drop BOTH EYES BID GuaiFENesin/Dextromethorphan [Robafen Dm Cgh-Chest Manuel Syrp] 10 ml PO Q4H PRN PRN Reason: Cough Hyoscyamine Sulfate [Oscimin Sl] 0.125 mg SL Q2H PRN PRN Reason: EXCESSIVE SECRETIONS Daily-Marli 1 tab PO DAILY Sevelamer HCl [Renagel] 1,600 mg PO TIDWM Discontinued Ranitidine HCl [Acid Plant Technician/Control Room Operator] 150 mg PO DAILY cloNIDine HCl [CloNIDine HCl] 0.1 mg PO Q8H PRN PRN Reason: "HTN SBP>170" OxyCODONE Immed Rel [Roxicodone 30 MG] 30 mg PO QID Morphine Oral CONC [Roxanol] 5 mg SL Q4H PRN PRN Reason: PAIN,DYSPNEA Potassium Chloride [K-Tab ER] 40 meq PO 1200 Home Medications: Acetaminophen [Tylenol 650mg SUPP] 650 mg RC Q4HR PRN 04/28/19 [History] Levothyroxine Sodium 200 mcg PO DAILY 04/28/19 [History] Lisinopril 2.5 mg PO DAILY 04/28/19 [History] Sodium Bicarbonate 650 mg PO BID 04/28/19 [History] Torsemide 100 mg PO DAILY 04/28/19 [History] ALPRAZolam [Xanax 0.5 MG Tablet] 0.5 mg PO BID@0800,1700 04/29/19 [History] ALPRAZolam [Xanax 0.5 MG Tablet] 0.5 mg PO HS PRN 04/29/19 [History] Acetaminophen [Tylenol] 325 mg PO Q6HR PRN 04/29/19 [History] Acetaminophen [Tylenol] 650 mg PO Q6HR PRN 04/29/19 [History] Aquaphor 1 appl TP AD 04/29/19 [History] Aspirin 81 mg PO DAILY 04/29/19 [History] Atorvastatin [Lipitor] 40 mg PO DAILY 04/29/19 [History] Carvedilol [Coreg] 12.5 mg PO BID 04/29/19 [History] Citalopram Hydrobromide [Citalopram HBr] 20 mg PO DAILY 04/29/19 [History] Dimethicone/Zinc Oxide [Teo Protect Cream] 142 gm TP AD PRN 04/29/19 [History] Ferrous Sulfate 325 mg PO BID 04/29/19 [History] Folic Acid 1 mg PO DAILY 04/29/19 [History] Glycerin/Propylene Glycol [Artificial Tears Drops] 1 drop BOTH EYES BID 04/29/19 [History] GuaiFENesin/Dextromethorphan [Robafen Dm Cgh-Chest Manuel Syrp] 10 ml PO Q4H PRN 04/29/19 [History] Hyoscyamine Sulfate [Oscimin Sl] 0.125 mg SL Q2H PRN 04/29/19 [History] Ipratropium/Albuterol Sulfate [Iprat-Albut 0.5-3(2.5) mg/3 ml] 3 ml IH Q6HR PRN 04/29/19 [History] Lactulose 10 gm PO BID 04/29/19 [History] Levothyroxine [Synthroid] 50 mcg PO DAILY 04/29/19 [History] Promethazine [Phenergan] 25 mg PO Q6HR PRN 04/29/19 [History] Promethazine [Phenergan] 25 mg RC Q6HR PRN 04/29/19 [History] Daily-Marli 1 tab PO DAILY 04/29/19 [History] Sevelamer HCl [Renagel] 1,600 mg PO TIDWM 04/29/19 [History] Umeclidinium Brm/Vilanterol Tr [Anoro Ellipta 62.5-25 Mcg INH] 1 puff IH DAILY 04/29/19 [History] Vitamin B Complex [B Complex] 1 tab PO DAILY 04/29/19 [History] Dexlansoprazole [Dexilant] 30 mg PO DAILY #1 cap.bp 05/01/19 [Rx] Isosorbide MONOnitrate (24 HR) [Imdur] 30 mg PO DAILY tab.er.24h 05/01/19 [Rx] Nitroglycerin 0.4 mg SL Q5MPRN PRN tab.subl 05/01/19 [Rx] Oxycodone HCl 10 mg PO QID PRN 1 Days #10 tablet 05/01/19 [Rx] Allergies/Adverse Reactions: Allergy/AdvReac Type Severity Reaction Status Date / Time No Known Allergies Allergy Verified 04/29/19 15:40 Date of admission: 04/30/19 14:46 Primary care physician: Trent Bose MD Consults: 04/28/19 17:32 Consult to Cardiology [CONS] Routine Comment: Consulting Provider: Cardiology Miranda Reason for Consult: Dr Grey notified by ED of chest pain, abnormal EKG, eval for further intervention Call Completed: Yes 04/28/19 17:36 Consult to Nephrology [CONS] Routine Consulting Provider: Kidney Miranda/ROD/LION/JOSE LUIS Reason for Consult: ESRD on HD, here with chest pain, management of HD/ESRD Call Completed: No 04/28/19 17:41 Consult to Gastroenterology [CONS] Routine Consulting Provider: Gastroenterology Miranda Reason for Consult: eval for anemia and + occult stool, pt here with chest pain requiring hep gtt and awaiting cards eval for further intervention, please assess if scopes will be necessary, no overt bleeding identified, Hgb in 10s. Thank you (no emergent bleed, appropriate to see in eval in am) Call Completed: No 04/28/19 20:13 Consult to Wind Farm Engineer [CONS] Routine Reason for SW Consult: dicharge planning 04/29/19 08:48 Consult to Nurse Navigator [CONS] Routine Comment: hd 04/29/19 09:15 Consult to Dialysis [CONS] ONCE 05/01/19 08:15 Consult to Dialysis [CONS] ONCE Discharging clinician: Bran Mace Anticipated date of discharge: 05/01/19 - Constitutional Vitals: Temp Pulse Resp BP Pulse Ox 98.6 F 60 20 126/62 91 05/01/19 07:48 05/01/19 07:48 05/01/19 07:48 05/01/19 07:48 05/01/19 07:48 General appearance: Present: A&O X 3, answers questions appropriately Exam: See below - Head Head exam: Present: normocephalic - Eye Eye exam: Present: EOMI, conjuntiva pink - ENT ENT exam: Present: mucous membranes moist - Neck Neck exam general surgery: Present: normal inspection, supple - Respiratory Respiratory exam: Present: decreased breath sounds. Absent: rales, rhonchi, wheezes - Cardiovascular Cardiovascular exam: Present: RRR. Absent: tachycardia - GI/Abdominal GI/Abdominal exam: Present: soft. Absent: tenderness - Extremities Exam Extremities exam: Present: warm. Absent: tenderness - Neurological Exam Neurological exam: Present: alert, oriented X3 - Skin Skin exam: Present: dry, warm. Absent: rash - Patient Status Disposition: Transfer SNF Condition: Fair Functional capacity at discharge: independent ambulation Overall status at discharge: patient is progressing back to baseline - Discharge Instructions Follow Up With: Trent Bose MD [Primary Care Provider] - (ECF) Forms: ED Satisfaction Letter - Diet and Activity Activity: resume usual activities as tolerated Diet: low fat, low cholesterol, low salt diet, other (Renal diet )
--- NOTE | 2019-05-01 09:43 | Physician Discharge Referral ---
ExtendedCare Referral Info Provider in Charge after Transfer: PCP Institutional Level of Care: Skilled - Diagnosis (1) NSTEMI (non-ST elevated myocardial infarction) Priority: Primary Status: Acute (2) ESRD (end stage renal disease) on dialysis Priority: Secondary Status: Chronic (3) PNA (pneumonia) Priority: Secondary Status: Acute (4) Anemia Priority: Secondary Status: Resolved (5) Thrombocytopenia Priority: Secondary Status: Chronic (6) Somnolence Priority: Secondary Status: Resolved (7) HTN (hypertension) Priority: Secondary Status: Chronic Prognosis: Fair Aware of Diagnosis: Patient Aware of Prognosis: Patient - Transfer Medications Prescriptions: Dexlansoprazole [Dexilant] 30 mg PO DAILY #1 feliberto.bp Oxycodone HCl 10 mg PO QID PRN 1 Days #10 tablet PRN Reason: Pain Home Medications: Acetaminophen [Tylenol 650mg SUPP] 650 mg RC Q4HR PRN 04/28/19 [History] Levothyroxine Sodium 200 mcg PO DAILY 04/28/19 [History] Lisinopril 2.5 mg PO DAILY 04/28/19 [History] Sodium Bicarbonate 650 mg PO BID 04/28/19 [History] Torsemide 100 mg PO DAILY 04/28/19 [History] ALPRAZolam [Xanax 0.5 MG Tablet] 0.5 mg PO BID@0800,1700 04/29/19 [History] ALPRAZolam [Xanax 0.5 MG Tablet] 0.5 mg PO HS PRN 04/29/19 [History] Acetaminophen [Tylenol] 325 mg PO Q6HR PRN 04/29/19 [History] Acetaminophen [Tylenol] 650 mg PO Q6HR PRN 04/29/19 [History] Aquaphor 1 appl TP AD 04/29/19 [History] Aspirin 81 mg PO DAILY 04/29/19 [History] Atorvastatin [Lipitor] 40 mg PO DAILY 04/29/19 [History] Carvedilol [Coreg] 12.5 mg PO BID 04/29/19 [History] Citalopram Hydrobromide [Citalopram HBr] 20 mg PO DAILY 04/29/19 [History] Dimethicone/Zinc Oxide [Teo Protect Cream] 142 gm TP AD PRN 04/29/19 [History] Ferrous Sulfate 325 mg PO BID 04/29/19 [History] Folic Acid 1 mg PO DAILY 04/29/19 [History] Glycerin/Propylene Glycol [Artificial Tears Drops] 1 drop BOTH EYES BID 04/29/19 [History] GuaiFENesin/Dextromethorphan [Robafen Dm Cgh-Chest Manuel Syrp] 10 ml PO Q4H PRN 04/29/19 [History] Hyoscyamine Sulfate [Oscimin Sl] 0.125 mg SL Q2H PRN 04/29/19 [History] Ipratropium/Albuterol Sulfate [Iprat-Albut 0.5-3(2.5) mg/3 ml] 3 ml IH Q6HR PRN 04/29/19 [History] Lactulose 10 gm PO BID 04/29/19 [History] Levothyroxine [Synthroid] 50 mcg PO DAILY 04/29/19 [History] Promethazine [Phenergan] 25 mg PO Q6HR PRN 04/29/19 [History] Promethazine [Phenergan] 25 mg RC Q6HR PRN 04/29/19 [History] Daily-Marli 1 tab PO DAILY 04/29/19 [History] Sevelamer HCl [Renagel] 1,600 mg PO TIDWM 04/29/19 [History] Umeclidinium Brm/Vilanterol Tr [Anoro Ellipta 62.5-25 Mcg INH] 1 puff IH DAILY 04/29/19 [History] Vitamin B Complex [B Complex] 1 tab PO DAILY 04/29/19 [History] Dexlansoprazole [Dexilant] 30 mg PO DAILY #1 bp 05/01/19 [Rx] Isosorbide MONOnitrate (24 HR) [Imdur] 30 mg PO DAILY tab.er.24h 05/01/19 [Rx] Nitroglycerin 0.4 mg SL Q5MPRN PRN tab.subl 05/01/19 [Rx] Oxycodone HCl 10 mg PO QID PRN 1 Days #10 tablet 05/01/19 [Rx] Allergies/Adverse Reactions: Allergy/AdvReac Type Severity Reaction Status Date / Time No Known Allergies Allergy Verified 04/29/19 15:40 - Respiratory Orders None Smoking Cessation: Smoking cessation has been advised. For more information, call the [place] Tobacco Quit Line at 7-782-GUGA-NOW. - Lab Orders Lab Orders: CBC, Ernie 17 - Ancillary Orders May use pressure relief devices daily prn, May consult with Dentist, Pen And Pencil Repairer, Edge Cutting Machine Operator PRN - Advance Directives Code Status: Full Code - Mobility Orders Chair, Ambulate - Rehabiliation Orders Rehab Potential: Fair Rehab Orders: Evaluation for Physical Therapy, Evaluation for Occupational Therapy - Treatments Skin tear care topically daily PRN per policy, May check for fecal impaction rectally daily PRN, Fleet enema rectally every other day PRN cleansing purposes - Diet Orders No Added Salt (ANTOINETTE), Renal, Cardiac CERTIFICATION: I certify that the transfer of the above named patient to an Extended Care Facility is necessary for the continuing treatment of the diagnosis listed. The above information is true and accurate reflection of patient's current condition. Confidential - Redisclosure prohibited without a patient's written consent.
--- NOTE | 2019-05-01 15:07 | Nephrology Progress Note ---
Date of Encounter: 05/01/19 Time of Encounter: 15:05 - Assessment and Plan (1) ESRD (end stage renal disease) on dialysis Current Visit: Yes Status: Chronic Current regimen is MWF at [facility]. HD compleated. Plan to do colonoscopy outpatient. Renal diet Renal vitamins Strict I/O Avoid nephrotoxins and renal dose all medications. (2) Anemia Current Visit: Yes Status: Resolved Hgb is 12.3 stable. Goal Hgb 10-11. Qualifiers: Anemia type: unspecified type Qualified Code(s): D64.9 - Anemia, unspec ified (3) NSTEMI (non-ST elevated myocardial infarction) Current Visit: Yes Status: Acute Cardio has signed off, continue medical management. (4) PNA (pneumonia) Current Visit: Yes Status: Acute Per primary. Qualifiers: Pneumonia type: due to unspecified organism Laterality: unspecified laterality Lung location: unspecified part of lung Qualified Code(s): J18.9 - Pneumonia, unspecified organism Subjective Principal diagnosis: chest pain Interval history: Pt seen and examined in HD, tolerating well. Denies nausea, vomiting or diarrhea. Denies chest pain or shortness of breath. States overall she is feeling much better and is ready to go home today. Objective - Vital Signs Vital signs: Vital Signs Temp Pulse Resp BP Pulse Ox 05/01/19 11:56 98.2 F 62 18 118/60 93 05/01/19 07:48 98.6 F 60 20 126/62 91 05/01/19 04:03 98.8 F 66 20 130/59 92 04/30/19 23:59 98.8 F 63 20 120/62 98 04/30/19 21:04 98.1 F 67 18 118/58 92 04/30/19 16:24 97.9 F 79 22 110/70 96 Intake and Output 04/30/19 05/01/19 05/01/19 23:59 07:59 15:59 Intake Total 112 / 160.7 360 / 360 Output Total 0 / 0 Balance 112 / -39.3 0 / 360 360 / 360 Intake: IV Fluids 112 / 160.7 Heparin 25,000 UNIT/250 ML D5W 52 / 100.7 25,000 unit In 250 ml @ 12 UNIT /KG/HR 4.844 mls/hr IVC .Q24H S[facility] Rx#:[id number] Rocephin 1,000 MG In Water for inj. (sterile) 10 ML @ 600 mls/ hr IVP DAILY [facility] Rx#:[id number] Ofirmev 1,000 mg/100 ml 500 mg 50 / 50 In 50 ml @ 200 mls/hr IVPB ONCE ONE Rx#:[id number] Oral 0 / 0 360 / 360 Output: Urine 0 / 0 Other: Meal Lunch Breakfast Percent of Meal Consumed 0% 25% Weight 37.9 kg Blood Glucose* 81 77 97 - General Appearance General appearance: Present: frail EENT: Present: ATNC, hearing intact, vision intact Neck: Present: supple Respiratory: Present: clear Cardiology: Present: no edema, normal S1, normal S2 Dialysis Vascular Access: Venous Catheter Additional Comments: Dressing clear and intact. Gastrointestinal: Present: normoactive bowel sounds, no tenderness, no guarding Integumentary: Present: no rash, warm and dry Neurologic: Present: alert and oriented x3 Musculoskeletal: Present: no deformities, no erythema Psychiatric: Present: mood/affect appropriate, cooperative - Lab 05/01/19 01:22 05/01/19 01:22 Consult Discharge Plan - Plan Referrals: Trent Bose MD [Primary Care Provider] - Prescriptions: Dexlansoprazole [Dexilant] 30 mg PO DAILY #1 bp Oxycodone HCl 10 mg PO QID PRN 1 Days #10 tablet PRN Reason: Pain
[2019-05-01] MEDS: Ondansetron 4 MG/2 ML VIAL IVP PRN (15:45)
[2019-05-01 17:44] VITALS: BP 129/68
== END 2019-05-01 18:51 | DRG 280 ==
LOC: EMEROOARM 14:35 → 2ANU 14:35 → SUATTDRO 18:11 → 2ANU 19:50 → SUATTDRO 04-30 14:46
PROVIDERS: ADMIT Internal Medicine Nephrology; ATTEND Internal Medicine